=== PATIENT | male | born 1960 | race Two or more races ===

== ENCOUNTER 2016-05-24 21:59 | Inpatient (IN) | payer MEDICARE, MEDICAID ==
[~2016-05-24] VITALS: Ht 193 cm; Wt 81.6 kg
[2016-05-24 22:47] VITALS: BP 151/98
[2016-05-24 22:53] LABS: BASOPHILS % (AUTO) 1.8 % (0.0-2.0); EOSINOPHILS % (AUTO) 5.7 % (0.0-3.0); LYMPHOCYTES % (AUTO) 30.8 % (20.0-45.0); MEAN CORPUSCULAR HEMOGLOBIN 31.7 PG (27.0-31.0); MEAN CORPUSCULAR HGB CONC 33.1 G/DL (32.0-36.0); MEAN CORPUSCULAR VOLUME 96 FL (80-99); MEAN PLATELET VOLUME 5.8 FL (6.5-10.1); MONOCYTES % (AUTO) 15.3 % (1.0-10.0); NEUTROPHILS % (AUTO) 46.4 % (45.0-75.0); PLATELET COUNT 210 K/UL (150-450); RED BLOOD COUNT 3.25 M/UL (4.70-6.10); RED CELL DISTRIBUTION WIDTH 13.7 % (11.6-14.8); WHITE BLOOD COUNT 5.6 K/UL (4.8-10.8)
[2016-05-24 23:09] LABS: TROPONIN I < 0.30 ng/mL (<=0.30)
[2016-05-24 23:10] LABS: ALANINE AMINOTRANSFERASE 16 U/L (3-41); ANION GAP 15 (5-15); ASPARTATE AMINO TRANSFERASE 13 U/L (5-40); CALCIUM 8.8 mg/dL (8.6-10.2); CARBON DIOXIDE 23 mEQ/L (20-30); CHLORIDE 95 mEQ/L (98-107); GLOMERULAR FILTRATION RATE > 60 mL/min (>60); HEMOLYSIS 3; POTASSIUM 3.8 mEQ/L (3.4-4.9); SODIUM 133 mEQ/L (135-145)
[2016-05-24 23:21] LABS: CKMB 1.6 ng/mL (< 6.7)
[2016-05-24 23:30] VITALS: BP 134/99
[2016-05-25] VITALS (8 sets, daily range): BP systolic 108–128; BP diastolic 64–100
[2016-05-25] MEDS ORDERED: VANCOMYCIN1 GM/2502 IVPB (01:59)
[2016-05-25] MEDS ORDERED: FINASTERIDE5 MG ORAL (01:59)
[2016-05-25] MEDS ORDERED: CHLORHEXIDINE FL1 M1 MC (01:59)
[2016-05-25] MEDS ORDERED: FLOMAX0.4 MG ORAL (01:59)
[2016-05-25] MEDS ORDERED: VANCOCIN250 MG ORAL (01:59)
[2016-05-25] MEDS ORDERED: COLACE100 MG ORAL (01:59)
[2016-05-25] MEDS ORDERED: MULTIVITAMINS1 EAC8 ORAL (01:59)
[2016-05-25] MEDS ORDERED: LORATADINE10 M1 PO (01:59)
[2016-05-25] MEDS ORDERED: FERROUS SULFAT325 MG ORAL (01:59)
--- NOTE | 2016-05-25 03:15 | Emergency Room Report ---
History of Present Illness General Chief Complaint: Skin Rash/Abscess Source: Patient Present Illness HPI Patient present with complaints of swelling and redness to both of his legs Questionable low-grade fever Patient resides at a nursing facility At this time denies any chest pressures of breath Pain to both legs is 6/10 This has been a fairly chronic pain Denies any fall or trauma Denies any back or flank pain Allergies: Coded Allergies: No Known Allergies (Unverified , 05/24/16) Patient History Past Medical History: see triage record Pertinent Family History: none Reviewed Nursing Documentation: PMH: Agreed, PSxH: Agreed Review of Systems All Other Systems: negative except mentioned in HPI Physical Exam Vital Signs Date Time Temp Pulse Resp B/P Pulse Ox O2 Delivery O2 Flow Rate FiO2 05/24/16 21:55 98.1 111 18 144/88 100 Room Air Sp02 EP Interpretation: reviewed, normal General Appearance: well appearing, no apparent distress Head: normocephalic, atraumatic Eyes: bilateral eye EOMI, bilateral eye PERRL ENT: hearing grossly normal, normal pharynx, TMs + canals normal, uvula midline Neck: full range of motion, supple, no meningismus, no bony tend Respiratory: lungs clear, normal breath sounds, no rhonchi, no respiratory distress, no retraction, no accessory muscle use Cardiovascular #1: normal peripheral pulses, regular rate, rhythm, no gallop, no JVD, no murmur Gastrointestinal: normal bowel sounds, non tender, soft, no mass, no organomegaly, non-distended, no guarding, no hernia, no pulsatile mass, no rebound Genitourinary: no CVA tenderness Musculoskeletal: swelling - 2 bilateral lower extremity, there is a significant chronic component to this patient appears to have venous insufficiency and stasis, pupils are intact in the foot does feel warm Neurologic: oriented x3, responsive, fire assistant III-XII nml as tested, sensory intact Psychiatric: mood/affect normal Skin: warm/dry, palpation normal, other - As noted above Lymphatic: normal inspection, no adenopathy Medical Decision Making Diagnostic Impression: Primary Impression: Cellulitis Additional Impressions: Venous stasis Venous stasis dermatitis of both lower extremities ER Course Given the patient's presentation and history Blood work was initiated Patient was given diuretics along with antibiotics Patient requires further infectious disease evaluation And further inpatient care Labs Test 05/24/16 22:10 White Blood Count 5.6 K/UL (4.8-10.8) Red Blood Count 3.25 M/UL (4.70-6.10) Hemoglobin 10.3 G/DL (14.2-18.0) Hematocrit 31.1 % (42.0-52.0) Mean Corpuscular Volume 96 FL (80-99) Mean Corpuscular Hemoglobin 31.7 PG (27.0-31.0) Mean Corpuscular Hemoglobin Concent 33.1 G/DL (32.0-36.0) Red Cell Distribution Width 13.7 % (11.6-14.8) Platelet Count 210 K/UL (150-450) Mean Platelet Volume 5.8 FL (6.5-10.1) Neutrophils (%) (Auto) 46.4 % (45.0-75.0) Lymphocytes (%) (Auto) 30.8 % (20.0-45.0) Monocytes (%) (Auto) 15.3 % (1.0-10.0) Eosinophils (%) (Auto) 5.7 % (0.0-3.0) Basophils (%) (Auto) 1.8 % (0.0-2.0) Sodium Level 133 mEQ/L (135-145) Potassium Level 3.8 mEQ/L (3.4-4.9) Chloride Level 95 mEQ/L (98-107) Carbon Dioxide Level 23 mEQ/L (20-30) Anion Gap 15 (5-15) Blood Urea Nitrogen 15 mg/dL (7-23) Creatinine 1.0 mg/dL (0.7-1.2) Estimat Glomerular Filtration Rate > 60 mL/min (>60) Glucose Level 87 mg/dL (74-106) Lactic Acid Level 1.40 mmol/L (0.66-2.22) Calcium Level 8.8 mg/dL (8.6-10.2) Total Bilirubin 0.3 mg/dL (0.0-1.2) Aspartate Amino Transf (AST/SGOT) 13 U/L (5-40) Alanine Aminotransferase (ALT/SGPT) 16 U/L (3-41) Alkaline Phosphatase 51 U/L (40-129) Total Creatine Kinase 47 U/L (38-174) Creatine Kinase MB 1.6 ng/mL (< 6.7) Creatine Kinase MB Relative Index 3.4 Troponin I < 0.30 ng/mL (<=0.30) Pro-B-Type Natriuretic Peptide 216 pg/mL (0-125) Total Protein 7.0 g/dL (6.6-8.7) Albumin 3.5 g/dL (3.5-5.2) Globulin 3.5 g/dL Albumin/Globulin Ratio 1.0 (1.0-2.7) Rhythm Strip Diag. Results EP Interpretation: yes Rate: 67 Rhythm: NSR, no PVC's, no ectopy Chest X-Ray Diagnostic Results EP Interpretation: Yes Findings: no consolidation, no effusion, no pneumothorax Number of Views: 1 Last Vital Signs Date Time Temp Pulse Resp B/P Pulse Ox O2 Delivery O2 Flow Rate FiO2 05/25/16 02:01 98.6 106 26 116/74 95 Room Air Disposition: ADMITTED INPATIENT Condition: Serious Referrals: KALEB ELIZONDO (PCP) SIDNEY WASHBURN D.O. May 25, 2016 03:15
[2016-05-25] MEDS ORDERED: Miralax 17gm pkt ORAL PRN (04:00)
[2016-05-25] MEDS ORDERED: Mylanta II UD 30ml ORAL PRN (04:00)
[2016-05-25] MEDS ORDERED: LORazepam Inj 2mg/ml 1ml IV PRN (04:00)
[2016-05-25] MEDS ORDERED: Zolpidem 5mg tab ORAL PRN (04:00)
[2016-05-25] MEDS ORDERED: Vancomycin 1gm inj IVPB ONE (05:09)
[2016-05-25] MEDS ORDERED: Cefepime 1gm vial ONE (05:09)
[2016-05-25] MEDS ORDERED: Vancomycin 1250mg/D5W 250ml IVPB SCH ×2 (06:00)
[2016-05-25] MEDS: Tamsulosin 0.4mg cap ORAL SCH (09:18)
[2016-05-25] MEDS: Heparin 5000 units/ml inj SUBQ SCH ×2 (09:19→21:54)
[2016-05-25] MEDS: Morphine Sulfate 2mg/ml Inj IVP PRN ×3 (09:21→19:47)
[2016-05-25] MEDS: Vancomycin 1250mg/D5W 250ml IVPB SCH ×4 (10:04→22:49)
--- NOTE | 2016-05-25 11:35 | Diagnostic Imaging Report ---
Indication: Chest Pain Comparison: None A single view chest radiograph was obtained. Findings: Cardiomediastinal appearance is within normal limits for age. Pulmonary vascularity is appropriate. The diaphragmatic contour is smooth and costophrenic angles are sharp. No pleural effusions are identified. There is a PICC line present in good position. The bones are unremarkable. Impression: No acute findings
--- NOTE | 2016-05-25 12:28 | Infectious Diseases Prog Note ---
Assessment/Plan Problems: (1) Cellulitis of leg Assessment & Plan: continue vanco and cefepime . check Sed rate and CRP (2) Venous stasis Assessment & Plan: recommend venous doplar to rule out dvt. keep leg elevated in bed (3) Edema of both legs Assessment & Plan: recommend diuresis, and doppler to rule out DVT Subjective Allergies: Coded Allergies: No Known Allergies (Unverified , 05/24/16) Objective Vital Signs Last 24 Hour Vital Signs Date Time Temp Pulse Resp B/P Pulse Ox O2 Delivery O2 Flow Rate FiO2 05/25/16 08:00 97.9 99 18 109/66 97 Room Air 05/25/16 03:22 97.9 103 20 108/64 97 Room Air 05/25/16 02:01 98.6 106 26 116/74 95 Room Air 05/25/16 02:00 104 24 109/71 98 Room Air 05/25/16 01:00 106 26 116/74 95 Room Air 05/25/16 00:00 110 23 128/100 98 Room Air 05/24/16 23:30 107 21 134/99 99 Room Air 05/24/16 22:47 98.6 106 18 151/98 100 Room Air 05/24/16 21:55 98.1 111 18 144/88 100 Room Air Height (Feet): 6 Height (Inches): 4.00 Weight (Pounds): 180 Laboratory Tests Test 05/24/16 22:10 White Blood Count 5.6 K/UL (4.8-10.8) Red Blood Count 3.25 M/UL (4.70-6.10) L Hemoglobin 10.3 G/DL (14.2-18.0) L Hematocrit 31.1 % (42.0-52.0) L Mean Corpuscular Volume 96 FL (80-99) Mean Corpuscular Hemoglobin 31.7 PG (27.0-31.0) H Mean Corpuscular Hemoglobin Concent 33.1 G/DL (32.0-36.0) Red Cell Distribution Width 13.7 % (11.6-14.8) Platelet Count 210 K/UL (150-450) Mean Platelet Volume 5.8 FL (6.5-10.1) L Neutrophils (%) (Auto) 46.4 % (45.0-75.0) Lymphocytes (%) (Auto) 30.8 % (20.0-45.0) Monocytes (%) (Auto) 15.3 % (1.0-10.0) H Eosinophils (%) (Auto) 5.7 % (0.0-3.0) H Basophils (%) (Auto) 1.8 % (0.0-2.0) Sodium Level 133 mEQ/L (135-145) L Potassium Level 3.8 mEQ/L (3.4-4.9) Chloride Level 95 mEQ/L (98-107) L Carbon Dioxide Level 23 mEQ/L (20-30) Anion Gap 15 (5-15) Blood Urea Nitrogen 15 mg/dL (7-23) Creatinine 1.0 mg/dL (0.7-1.2) Estimat Glomerular Filtration Rate > 60 mL/min (>60) Glucose Level 87 mg/dL (74-106) Lactic Acid Level 1.40 mmol/L (0.66-2.22) Calcium Level 8.8 mg/dL (8.6-10.2) Total Bilirubin 0.3 mg/dL (0.0-1.2) Aspartate Amino Transf (AST/SGOT) 13 U/L (5-40) Alanine Aminotransferase (ALT/SGPT) 16 U/L (3-41) Alkaline Phosphatase 51 U/L (40-129) Total Creatine Kinase 47 U/L (38-174) Creatine Kinase MB 1.6 ng/mL (< 6.7) Creatine Kinase MB Relative Index 3.4 Troponin I < 0.30 ng/mL (<=0.30) Pro-B-Type Natriuretic Peptide 216 pg/mL (0-125) H Total Protein 7.0 g/dL (6.6-8.7) Albumin 3.5 g/dL (3.5-5.2) Globulin 3.5 g/dL Albumin/Globulin Ratio 1.0 (1.0-2.7) Current Medications Medications (Trade) Dose Ordered Sig/Janay Route PRN Reason Start Time Stop Time Status Last Admin Dose Admin Acetaminophen (Tylenol) 650 mg Q4H PRN ORAL fever 05/25/16 04:00 06/24/16 03:59 Al Hydroxide/Mg Hydroxide (Mylanta II) 30 ml Q6H PRN ORAL dyspepsia 05/25/16 04:00 06/24/16 03:59 Cefepime HCl 1 gm/ Dextrose 50 ml @ 50 mls/hr Q8H IVPB 05/25/16 05:00 06/01/16 04:59 05/25/16 05:23 Dextrose (Dextrose 50%) STAT PRN IV Hypoglycemia 05/25/16 04:00 06/24/16 03:59 Finasteride (Proscar) 5 mg DAILY ORAL 05/25/16 09:00 06/24/16 08:59 05/25/16 09:18 Heparin Sodium (Porcine) (Heparin 5000 units/ml) 5,000 units EVERY 12 HOURS SUBQ 05/25/16 09:00 06/24/16 08:59 05/25/16 09:19 Lorazepam (Ativan 2mg/ml 1ml) 0.5 mg Q4H PRN IV For Anxiety 05/25/16 04:00 06/01/16 03:59 Morphine Sulfate (Morphine Sulfate) 1 mg Q4H PRN IVP For Pain 05/25/16 04:00 06/01/16 03:59 05/25/16 09:21 Ondansetron HCl (Zofran) 4 mg Q6H PRN IVP Nausea & Vomiting 05/25/16 04:00 06/24/16 03:59 Polyethylene Glycol (Miralax) 17 gm HSPRN PRN ORAL Constipation 05/25/16 04:00 06/24/16 03:59 Tamsulosin HCl (Flomax) 0.4 mg DAILY ORAL 05/25/16 09:00 06/24/16 08:59 05/25/16 09:18 Vancomycin HCl 1 ea 1 ea DAILY PRN MISC Per rx protocol 05/25/16 04:00 06/24/16 03:59 Vancomycin HCl/ Dextrose (Vancomycin/D5W 250ml) 250 ml @ 166.667 mls/hr Q12H IVPB 05/25/16 10:00 05/30/16 09:59 05/25/16 10:04 Zolpidem Tartrate (Ambien) 5 mg HSPRN PRN ORAL Insomnia 05/25/16 04:00 06/24/16 03:59 Kathryn Cheung M.D. May 25, 2016 12:28
[2016-05-25] MEDS ORDERED: ZYPREXA15 MG ORAL (14:58)
[2016-05-25] MEDS ORDERED: BENZTROPINE ME0.5 MG PO (14:58)
[2016-05-25] MEDS ORDERED: DEPAKOTE500 MG PO ×2 (14:58)
[2016-05-25] MEDS ORDERED: REMERON15 M1 ORAL (14:58)
[2016-05-25] MEDS ORDERED: FLUPHENAZINE HCL5 MG ORAL (15:02)
--- NOTE | 2016-05-25 17:18 | Consultation ---
History of Present Illness General Date patient seen: May 25, 2016 Chief Complaint: Skin Rash/Abscess Referring physician: Dr Dias Reason for Consultation: In patient management Present Illness HPI 55 year old male with hx of psychiatric disorder, [facility] resident admitted through ER with CC of swelling of ankles, and rash around her calf. Pt doens't have any fever, chills or any other complains, doesn't know about any past heart disease. Allergies: Coded Allergies: No Known Allergies (Unverified , 05/24/16) Medication History Scheduled Benztropine Mesylate (Benztropine Mesylate), 1 MG PO BID, (Reported) Chlorhexidine (Chlorhexidine Flavor), 20 ML MC TID, (Reported) Divalproex Sodium (Depakote), 500 MG PO Q AM, (Reported) Divalproex Sodium (Depakote), 1,000 MG PO Q PM, (Reported) Docusate Sodium* (Colace*), 100 MG ORAL TWICE A DAY, (Reported) Ferrous Sulfate* (Ferrous Sulfate*), 325 MG ORAL TWICE A DAY, (Reported) Finasteride (Finasteride), 5 MG ORAL DAILY, (Reported) Fluphenazine Hcl* (Prolixin*), 10 MG ORAL TWICE A DAY, (Reported) Loratadine (Loratadine), 10 MG PO DAILY, (Reported) Mirtazapine (Remeron), 15 MG ORAL BEDTIME, (Reported) Multivitamin With Minerals (Multivitamins With Minerals*), 1 TAB ORAL DAILY, ( Reported) Olanzapine (Zyprexa), 10 MG ORAL QHS, (Reported) Tamsulosin HCl (Flomax), 0.4 MG ORAL DAILY, (Reported) Vancomycin HCl (Vancocin HCl), 250 MG ORAL QID, (Reported) Vancomycin Hcl/D5w (Vancomycin-D5w 1 G/250 Ml), 750 MG IVPB Q24H, (Reported) Patient History Healthcare decision maker Resuscitation status Advanced Directive on File Past Medical/Surgical History Past Medical/Surgical History: (1) Psychosis Review of Systems All Other Systems: negative except mentioned in HPI Physical Exam General Appearance: WD/WN Lines, tubes and drains: peripheral, central line HEENT: normocephalic, atraumatic Neck: non-tender, normal alignment Respiratory/Chest: chest wall non-tender, lungs clear Cardiovascular/Chest: normal peripheral pulses, normal rate Abdomen: normal bowel sounds, non tender Genitourinary/Rectal: normal genital exam, normal rectal exam Last 24 Hour Vital Signs Date Time Temp Pulse Resp B/P Pulse Ox O2 Delivery O2 Flow Rate FiO2 05/25/16 15:46 97.7 88 20 118/66 99 Room Air 05/25/16 12:00 98.1 94 20 113/69 100 Room Air 05/25/16 08:00 97.9 99 18 109/66 97 Room Air 05/25/16 03:22 97.9 103 20 108/64 97 Room Air 05/25/16 02:01 98.6 106 26 116/74 95 Room Air 05/25/16 02:00 104 24 109/71 98 Room Air 05/25/16 01:00 106 26 116/74 95 Room Air 05/25/16 00:00 110 23 128/100 98 Room Air 05/24/16 23:30 107 21 134/99 99 Room Air 05/24/16 22:47 98.6 106 18 151/98 100 Room Air 05/24/16 21:55 98.1 111 18 144/88 100 Room Air Intake and Output 05/24/16 05/25/16 19:00 07:00 Intake Total 300 ml Output Total 300 ml Balance 0 ml Intake Oral 250 ml IV Total 50 ml Output Urine Total 300 ml # Voids 1 Laboratory Tests Test 05/24/16 22:10 05/25/16 14:30 White Blood Count 5.6 K/UL (4.8-10.8) Red Blood Count 3.25 M/UL (4.70-6.10) L Hemoglobin 10.3 G/DL (14.2-18.0) L Hematocrit 31.1 % (42.0-52.0) L Mean Corpuscular Volume 96 FL (80-99) Mean Corpuscular Hemoglobin 31.7 PG (27.0-31.0) H Mean Corpuscular Hemoglobin Concent 33.1 G/DL (32.0-36.0) Red Cell Distribution Width 13.7 % (11.6-14.8) Platelet Count 210 K/UL (150-450) Mean Platelet Volume 5.8 FL (6.5-10.1) L Neutrophils (%) (Auto) 46.4 % (45.0-75.0) Lymphocytes (%) (Auto) 30.8 % (20.0-45.0) Monocytes (%) (Auto) 15.3 % (1.0-10.0) H Eosinophils (%) (Auto) 5.7 % (0.0-3.0) H Basophils (%) (Auto) 1.8 % (0.0-2.0) Sodium Level 133 mEQ/L (135-145) L Potassium Level 3.8 mEQ/L (3.4-4.9) Chloride Level 95 mEQ/L (98-107) L Carbon Dioxide Level 23 mEQ/L (20-30) Anion Gap 15 (5-15) Blood Urea Nitrogen 15 mg/dL (7-23) Creatinine 1.0 mg/dL (0.7-1.2) Estimat Glomerular Filtration Rate > 60 mL/min (>60) Glucose Level 87 mg/dL (74-106) Lactic Acid Level 1.40 mmol/L (0.66-2.22) Calcium Level 8.8 mg/dL (8.6-10.2) Total Bilirubin 0.3 mg/dL (0.0-1.2) Aspartate Amino Transf (AST/SGOT) 13 U/L (5-40) Alanine Aminotransferase (ALT/SGPT) 16 U/L (3-41) Alkaline Phosphatase 51 U/L (40-129) Total Creatine Kinase 47 U/L (38-174) Creatine Kinase MB 1.6 ng/mL (< 6.7) Creatine Kinase MB Relative Index 3.4 Troponin I < 0.30 ng/mL (<=0.30) Pro-B-Type Natriuretic Peptide 216 pg/mL (0-125) H Total Protein 7.0 g/dL (6.6-8.7) Albumin 3.5 g/dL (3.5-5.2) Globulin 3.5 g/dL Albumin/Globulin Ratio 1.0 (1.0-2.7) Erythrocyte Sedimentation Rate 61 MM/HR (0-20) H C-Reactive Protein, Quantitative 1.3 mg/dL (< 0.5) H Height (Feet): 6 Height (Inches): 4.00 Weight (Pounds): 180 Medications Current Medications Medications (Trade) Dose Ordered Sig/Janay Route PRN Reason Start Time Stop Time Status Last Admin Dose Admin Acetaminophen (Tylenol) 650 mg Q4H PRN ORAL fever 05/25/16 04:00 06/24/16 03:59 05/25/16 15:38 Al Hydroxide/Mg Hydroxide (Mylanta II) 30 ml Q6H PRN ORAL dyspepsia 05/25/16 04:00 06/24/16 03:59 Benztropine Mesylate (Cogentin) 1 mg BID ORAL 05/25/16 18:00 06/24/16 17:59 Cefepime HCl 1 gm/ Dextrose 50 ml @ 50 mls/hr Q8H IVPB 05/25/16 05:00 06/01/16 04:59 05/25/16 13:38 Dextrose (Dextrose 50%) STAT PRN IV Hypoglycemia 05/25/16 04:00 06/24/16 03:59 Divalproex Sodium (Depakote) 500 mg DAILY ORAL 05/26/16 09:00 06/25/16 08:59 Divalproex Sodium (Depakote) 1,000 mg BEDTIME ORAL 05/25/16 21:00 06/24/16 20:59 Finasteride (Proscar) 5 mg DAILY ORAL 05/25/16 09:00 06/24/16 08:59 05/25/16 09:18 Fluphenazine HCl (Prolixin) 10 mg BID ONCE ORAL 05/25/16 18:00 05/25/16 18:01 Heparin Sodium (Porcine) (Heparin 5000 units/ml) 5,000 units EVERY 12 HOURS SUBQ 05/25/16 09:00 06/24/16 08:59 05/25/16 09:19 Lorazepam (Ativan 2mg/ml 1ml) 0.5 mg Q4H PRN IV For Anxiety 05/25/16 04:00 06/01/16 03:59 Mirtazapine (Remeron) 15 mg BEDTIME ORAL 05/25/16 21:00 06/24/16 20:59 Morphine Sulfate (Morphine Sulfate) 1 mg Q4H PRN IVP For Pain 05/25/16 04:00 06/01/16 03:59 05/25/16 13:39 Olanzapine (ZyPREXA) 10 mg BEDTIME ORAL 05/25/16 21:00 06/24/16 20:59 Ondansetron HCl (Zofran) 4 mg Q6H PRN IVP Nausea & Vomiting 05/25/16 04:00 06/24/16 03:59 Polyethylene Glycol (Miralax) 17 gm HSPRN PRN ORAL Constipation 05/25/16 04:00 06/24/16 03:59 Tamsulosin HCl (Flomax) 0.4 mg DAILY ORAL 05/25/16 09:00 06/24/16 08:59 05/25/16 09:18 Vancomycin HCl 1 ea 1 ea DAILY PRN MISC Per rx protocol 05/25/16 04:00 06/24/16 03:59 Vancomycin HCl/ Dextrose (Vancomycin/D5W 250ml) 250 ml @ 166.667 mls/hr Q12H IVPB 05/25/16 10:00 05/30/16 09:59 05/25/16 10:04 Zolpidem Tartrate (Ambien) 5 mg HSPRN PRN ORAL Insomnia 05/25/16 04:00 06/24/16 03:59 Assessment/Plan Problem List: (1) Cellulitis ICD Codes: L03.90 - Cellulitis, unspecified SNOMED: 414516162 (2) Edema of both legs ICD Codes: R60.0 - Localized edema SNOMED: 870743195 (3) Venous stasis dermatitis of both lower extremities ICD Codes: I83.11 - Varicose veins of right lower extremity with inflammation; I83.12 - Varicose veins of left lower extremity with inflammation SNOMED: 53145203 (4) Psychosis ICD Codes: F29 - Unspecified psychosis not due to a substance or known physiological condition SNOMED: 14251048 Assessment/Plan IV antibiotics doppler of legs cardiac evaluation psych evaluation FRANKO GUSMAN May 25, 2016 17:18
[2016-05-25] MEDS: Benztropine 1mg tab ORAL SCH (17:52)
--- NOTE | 2016-05-25 19:28 | General Progress Note ---
Progress Note Progress Note [id number] pt seen and examined full note dictated DERRICK LOBO May 25, 2016 19:28
[2016-05-25] MEDS: Depakote 500mg tab ORAL SCH (21:52)
--- NOTE | 2016-05-25 22:08 | History and Physical Report ---
DATE OF ADMISSION: 05/24/2016 TIME SEEN: At 3 p.m. ATTENDING PHYSICIAN: Santhosh Dias D.O. CONSULTANTS: 1. Samir Miranda M.D. 2. Kathryn Cheung M.D. 3. Sachin Castillo M.D. 4. Rosa Maria Bernal M.D. CHIEF COMPLAINT: Bilateral lower extremity cellulitis with edema, pneumonia, sepsis, and encephalopathy. HISTORY OF PRESENT ILLNESS: This is a 55-year-old male from [facility], presents to [place] ER with increased bilateral lower extremity edema and cellulitis, diagnosed of above, and pneumonia, sepsis, and encephalopathy and being admitted to medical floor for further treatment. Currently, calm, sleeping in bed, and refusing to answer questions. REVIEW OF SYSTEMS: Not available. PAST MEDICAL HISTORY: Includes encephalopathy and edema. PAST SURGICAL HISTORY: Unknown. ALLERGIES: Denies. MEDICATIONS: Include vancomycin, finasteride, Flomax, heparin, cefepime, Tylenol, morphine, and MiraLax. SOCIAL HISTORY: The patient refused to answer. PHYSICAL EXAMINATION: VITAL SIGNS: Temperature 98, pulse 94, respirations 20, and blood pressure 113/69. CARDIOVASCULAR: No murmur. LUNGS: Poor air exchange. ABDOMEN: Bowel sounds are positive. Nontender and nondistended. EXTREMITIES: No cyanosis or clubbing. A 1+ edema, bilateral lower extremities below mid peters slightly . LABORATORY DATA: Labs at this time show hemoglobin 10.3, otherwise CBC is normal. Sodium 133, chloride 95. BNP is 216. ASSESSMENT: 1. Bilateral lower extremity cellulitis, edema. 2. Anemia. 3. Pneumonia. 4. Sepsis. 5. Encephalopathy. PLAN: Continue premedications. O2 pulmonary treatment. Antibiotics per Infectious Disease. Wound care. Blood pressure control. OT/PT and dietary evaluation. CBC and BMP in the morning. We will continue to follow the patient. Santhosh Dias D.O. DR: CM JOB#: [id number] CC:
[2016-05-26] VITALS (7 sets, daily range): BP systolic 100–140; BP diastolic 59–86
--- NOTE | 2016-05-26 00:07 | Consultation ---
DATE OF CONSULTATION: INFECTIOUS DISEASE CONSULTATION CONSULTING PHYSICIAN: Kathryn Cheung M.D. REQUESTING PHYSICIAN: Santhosh Dias D.O. REASON FOR CONSULTATION: Bilateral lower extremity cellulitis, for antibiotics treatment. HISTORY OF PRESENT ILLNESS: The patient is a 55-year-old male with no significant past medical history, who presented to the emergency room with a chief complaint of leg swelling and redness with low-grade fever. The patient lives at the [facility] facility. He was noticed by the nursing staff to have more swelling and redness on both legs and feet. No recent trauma or fall. No skin abscess or drainage. It is unclear whether he had a venous stasis as a predisposing factor or not. So, he was brought in to the emergency room for further evaluation and management. Temperature was 98.1 degrees and O2 saturation 100% on room air. Physical exam showed swelling on both legs with chronic changes due to venous insufficiency and stasis, so I was asked by the primary provider for antibiotics recommendation and further management. PAST MEDICAL HISTORY: Negative. PAST SURGICAL HISTORY: Negative. MEDICATIONS: He is on Depakote, Zyprexa, Remeron, Cogentin, Prolixin, Proscar, vancomycin, cefepime, morphine, Tylenol, MiraLAX, Zofran, Ativan, Ambien, and Mylanta. ALLERGIES: He has no known drug allergy. SOCIAL HISTORY: He is a [facility] resident. Denied using any tobacco, drugs, or alcohol. FAMILY HISTORY: Noncontributory. REVIEW OF SYSTEMS: A 14-point of system reviewed were all negative apart from the one I mentioned above in my History and Physical PHYSICAL EXAMINATION: VITAL SIGNS: Temperature 97.7 degrees, pulse 88, respirations 20, blood pressure 118/66, and pulse oximetry 99% on room air. GENERAL: A middle-aged male, lying in bed, alert, and not in distress. HEENT: Normocephalic and atraumatic. Pupils are reactive to light equally. Moist oral mucosa. NECK: Supple. No JVD. CARDIOVASCULAR: Regular rate and rhythm. No murmur. No gallop. LUNGS: Clear bilaterally. No wheezing or rhonchi. Normal breathing efforts. ABDOMEN: Soft, nontender, and nondistended. Positive bowel sounds. No hepatosplenomegaly. EXTREMITIES: He had edema +2 in both lower extremity with chronic component due to venous insufficiency and stasis dermatitis. SKIN: Warm and dry mainly on both lower extremities. No rash. No hives. LABORATORY DATA: Labs showed white count of 5.6, hemoglobin of 10.3, hematocrit of 31.3, and platelet count 210,000. BUN of 15 and creatinine of 1. AST of 13 and ALT of 16. IMAGING DATA: Chest x-ray showed no acute findings. Arterial study showed no evidence of stenosis or occlusion in both right and left lower extremity. ASSESSMENT AND PLAN: 1. Cellulitis of the legs. We will continue vancomycin and cefepime empiric treatment for now. Check his sedimentation rate and C-reactive protein. I recommend venous Doppler of both legs to rule out deep venous thrombosis. 2. Venous stasis with chronic stasis dermatitis. Recommend venous Doppler to rule out deep venous thrombosis. Arterial study looked okay. keep legs elevated all the time while in bed. 3. Edema of both legs. Recommend echocardiogram to rule out congestive heart failure and venous Doppler to rule out deep venous thrombosis. Kathryn Cheung M.D. DR: JEFF JOB#: [id number] CC: [place]
[2016-05-26] MEDS: Morphine Sulfate 2mg/ml Inj IVP PRN ×5 (00:17→22:58)
--- NOTE | 2016-05-26 06:27 | Consultation ---
DATE OF CONSULTATION: 05/25/2016 NEPHROLOGY CONSULTATION CONSULTING PHYSICIAN: Rosa Maria Bernal M.D. REFERRING PHYSICIAN: Santhosh Dias D.O. REASON FOR CONSULTATION: Fluid overload and electrolyte imbalance. HISTORY OF PRESENT ILLNESS: The patient is a 55-year-old unfortunate male with past medical history significant for history of schizophrenia. He is a assisted resident. He presents to emergency room at [facility] for bilateral lower extremity swelling and cellulitis. The rash was more on his right rather than left. He consequently was found to be overloaded and having low sodium. I was called for management of renal disease and electrolyte imbalance. PAST MEDICAL HISTORY: Including history of schizophrenia, otherwise negative. HOME MEDICATIONS: 1. Benztropine 1 mg p.o. b.i.d. 2. Chlorhexidine 20 mg p.o. daily. 3. Divalproex or Depakote 500 mg p.o. daily. 4. Depakote 1000 mg at night. 5. Colace 100 mg p.o. daily. 6. Iron sulfate 325 mg p.o. daily. 7. Finasteride 5 mg p.o. daily. 8. Loratadine 10 mg p.o. daily. 9. Zyprexa 10 mg p.o. daily. SOCIAL HISTORY: He is a nonsmoker. There is no history of current alcohol or drug use. retirement resident. FAMILY HISTORY: Noncontributory. REVIEW OF SYSTEMS: General: He denied any weight loss, weight gain, fever, chills, or night sweats. Head and neck: Denied any dysphagia, odynophagia, blurry vision, headache, or neck stiffness. Pulmonary: No shortness of breath. No cough or sputum. Cardiovascular: Denied any orthopnea, has lower extremity swelling. Gastrointestinal: Denied any nausea, vomiting, diarrhea, hematemesis, or hematochezia. Genitourinary: Denied any dysuria, frequency, or hematuria. Musculoskeletal: He complained of bilateral lower extremity edema and cellulitis. PHYSICAL EXAMINATION: VITAL SIGNS: The patient has temperature of 97 degrees, pulse of 88, respiratory rate of 20, temperature of 97 degrees, and blood pressure of 118/86. HEENT: Extraocular movement intact. Pupils are reactive to light and accommodation. NECK: No JVP. No LAD. No thyromegaly. LUNGS: Clear to auscultation. CARDIAC: Regular rate and rhythm. S1 and S2. No murmur. No rub. ABDOMEN: Soft, nontender, and nondistended. EXTREMITIES: Bilateral 2+ edema of lower extremity. He also has a rash with redness and increased warmth on both lower extremities, right worse than left, otherwise negative. LABORATORY AND DIAGNOSTIC DATA: The most recent laboratory result revealed WBC count of 5.6, hemoglobin of 10.3, hematocrit of 31, and platelet count of 210,000. Chemistry reveals sodium 133, potassium 3.8, 95 chloride, 23 bicarb, BUN of 15, creatinine of 1, glucose of 87, and calcium of 8.8. AST of 13, ALT of 16, and alkaline phosphatase of 61. Total protein of 7, albumin of 3.5. There is no UA. The patient had a chest x-ray on admission, which revealed unremarkable. No acute cardiopulmonary disease. ASSESSMENT: 1. Bilateral lower extremity edema and swelling. The etiology is unlikely to be cardiac in origin since patient has no evidence of pulmonary overload. He is lying flat in the bed and the chest x-ray is negative. The other possibility is nephrotic syndrome, although his is in acceptable level. 2. Mild hyponatremia. 3. Anemia. PLAN: Plan for the patient is to obtain a UA. Check the random urine [id number] ratio to calculate the proteinuria. Check the urine for eosinophil. I would monitor renal function and electrolyte closely and daily weights. Check the Is and Os. I would like to thank, Dr. Santhosh Dias, for allowing me to participate in the care of this patient. Rosa Maria Bernal M.D. DR: HAMZAH JOB#: [id number] CC:
[2016-05-26 07:36] LABS: ALANINE AMINOTRANSFERASE 15 U/L (3-41); ALBUMIN/GLOBULIN RATIO 1.1 (1.0-2.7); ANION GAP 16 (5-15); ASPARTATE AMINO TRANSFERASE 13 U/L (5-40); CALCIUM 8.7 mg/dL (8.6-10.2); CARBON DIOXIDE 22 mEQ/L (20-30); CHLORIDE 102 mEQ/L (98-107); CHOLESTEROL 109 mg/dL (< 200); CHOLESTEROL/HDL RATIO 3.9 (3.3-4.4); GLOMERULAR FILTRATION RATE > 60 mL/min (>60); HEMOLYSIS 4; LDL CHOLESTEROL (CALC.) 70 mg/dL (60-99); POTASSIUM 3.9 mEQ/L (3.4-4.9); SODIUM 140 mEQ/L (135-145); TOTAL PROTEIN 6.1 g/dL (6.6-8.7)
[2016-05-26 07:37] LABS: BASOPHILS % (AUTO) 0.7 % (0.0-2.0); EOSINOPHILS % (AUTO) 8.6 % (0.0-3.0); LYMPHOCYTES % (AUTO) 37.7 % (20.0-45.0); MEAN CORPUSCULAR HEMOGLOBIN 32.5 PG (27.0-31.0); MEAN CORPUSCULAR HGB CONC 35.1 G/DL (32.0-36.0); MEAN CORPUSCULAR VOLUME 93 FL (80-99); MEAN PLATELET VOLUME 6.3 FL (6.5-10.1); MONOCYTES % (AUTO) 12.1 % (1.0-10.0); NEUTROPHILS % (AUTO) 40.9 % (45.0-75.0); PLATELET COUNT 205 K/UL (150-450); RED BLOOD COUNT 3.31 M/UL (4.70-6.10); RED CELL DISTRIBUTION WIDTH 13.1 % (11.6-14.8); WHITE BLOOD COUNT 4.5 K/UL (4.8-10.8)
[2016-05-26 08:16] LABS: HEMOGLOBIN A1C 4.4 % (< 6.0)
--- NOTE | 2016-05-26 09:03 | Nephrology Progress Note ---
Assessment/Plan Assessment 1.bilateral lower ext cellulitis 2.venous stasis 3.Htn 4.hyponatremia Plan plan to continue iv antibiotic diuresis monitoring electrolyte avoid NSAID Subjective Constitutional: Reports: no symptoms HEENT: Reports: no symptoms Genitourinary: Reports: no symptoms Neurologic/Psychiatric: Reports: no symptoms Subjective alert and awake no events Objective Objective Last 24 Hour Vital Signs Date Time Temp Pulse Resp B/P Pulse Ox O2 Delivery O2 Flow Rate FiO2 05/26/16 04:00 97.7 81 20 129/71 97 Room Air 05/26/16 00:00 98.2 87 18 125/74 98 Room Air 05/25/16 19:00 97.7 92 20 115/72 100 Room Air 05/25/16 15:46 97.7 88 20 118/66 99 Room Air 05/25/16 12:00 98.1 94 20 113/69 100 Room Air Intake and Output 05/25/16 05/26/16 19:00 07:00 Intake Total 300 ml 1350 ml Balance 300 ml 1350 ml Intake Oral 1250 ml IV Total 300 ml 100 ml # Voids 5 Laboratory Tests 05/25/16 14:30: Erythrocyte Sedimentation Rate 61H, C-Reactive Protein, Quantitative 1.3H 05/26/16 05:40: White Blood Count 4.5L, Red Blood Count 3.31L, Hemoglobin 10.8L, Hematocrit 30.7L, Mean Corpuscular Volume 93, Mean Corpuscular Hemoglobin 32.5H, Mean Corpuscular Hemoglobin Concent 35.1, Red Cell Distribution Width 13.1, Platelet Count 205, Mean Platelet Volume 6.3L, Neutrophils (%) (Auto) 40.9L, Lymphocytes (%) (Auto) 37.7, Monocytes (%) (Auto) 12.1H, Eosinophils (%) (Auto) 8.6H, Basophils (%) (Auto) 0.7, Sodium Level 140, Potassium Level 3.9, Chloride Level 102, Carbon Dioxide Level 22, Anion Gap 16H, Blood Urea Nitrogen 17, Creatinine 1.0, Estimat Glomerular Filtration Rate > 60, Glucose Level 89, Hemoglobin A1c 4.4, Calcium Level 8.7, Total Bilirubin 0.2, Aspartate Amino Transf (AST/SGOT) 13, Alanine Aminotransferase (ALT/SGPT) 15, Alkaline Phosphatase 48, Total Protein 6.1L, Albumin 3.3L, Globulin 2.8, Albumin/Globulin Ratio 1.1, Triglycerides Level 57, Cholesterol Level 109, LDL Cholesterol 70, HDL Cholesterol 28, Cholesterol/HDL Ratio 3.9, Thyroid Stimulating Hormone (TSH) 2.180 Height (Feet): 6 Height (Inches): 4.00 Weight (Pounds): 180 Objective HEENT: Extraocular movement intact. Pupils are reactive to light and accommodation. NECK: No JVP. No LAD. No thyromegaly. LUNGS: Clear to auscultation. CARDIAC: Regular rate and rhythm. S1 and S2. No murmur. No rub. ABDOMEN: Soft, nontender, and nondistended. EXTREMITIES: Bilateral 2+ edema of lower extremity. He also has a rash with redness and increased warmth on both lower extremities, right worse than left, otherwise negative. DERRICK LOBO May 26, 2016 09:03
[2016-05-26] MEDS: Benztropine 1mg tab ORAL SCH ×2 (09:05→17:46)
[2016-05-26] MEDS: Depakote 500mg tab ORAL SCH ×2 (09:05→22:09)
[2016-05-26] MEDS: Tamsulosin 0.4mg cap ORAL SCH (09:05)
[2016-05-26] MEDS: Vancomycin 1250mg/D5W 250ml IVPB SCH ×2 (09:06)
[2016-05-26] MEDS: Heparin 5000 units/ml inj SUBQ SCH ×2 (09:08→22:07)
--- NOTE | 2016-05-26 14:47 | General Progress Note ---
Assessment/Plan Problem List: (1) Rash and other nonspecific skin eruption ICD Codes: R21 - Rash and other nonspecific skin eruption SNOMED: 784189274, 672512871 (2) Venous stasis ICD Codes: I87.8 - Other specified disorders of veins; I83.12 - Varicose veins of left lower extremity with inflammation SNOMED: 36404082 (3) Venous stasis dermatitis of both lower extremities ICD Codes: I83.11 - Varicose veins of right lower extremity with inflammation; I83.12 - Varicose veins of left lower extremity with inflammation SNOMED: 66331643 (4) Cellulitis of leg ICD Codes: L03.119 - Cellulitis of unspecified part of limb SNOMED: 524662696 (5) Edema of both legs ICD Codes: R60.0 - Localized edema SNOMED: 938910136 (6) Psychosis ICD Codes: F29 - Unspecified psychosis not due to a substance or known physiological condition SNOMED: 77685548 (7) Cellulitis ICD Codes: L03.90 - Cellulitis, unspecified SNOMED: 275630517 Status: stable, progressing, tolerating diet Assessment/Plan wound care abx ot pt diet cbc bmp in ltach eval Subjective Constitutional: Reports: weakness Allergies: Coded Allergies: No Known Allergies (Unverified , 05/24/16) All Systems: reviewed and negative except above Subjective calm in bed Objective Last 24 Hour Vital Signs Date Time Temp Pulse Resp B/P Pulse Ox O2 Delivery O2 Flow Rate FiO2 05/26/16 12:00 97.9 85 20 100/64 95 Room Air 05/26/16 08:00 98.7 79 19 106/59 95 Room Air 05/26/16 04:00 97.7 81 20 129/71 97 Room Air 05/26/16 00:00 98.2 87 18 125/74 98 Room Air 05/25/16 19:00 97.7 92 20 115/72 100 Room Air 05/25/16 15:46 97.7 88 20 118/66 99 Room Air Intake and Output 05/25/16 05/26/16 19:00 07:00 Intake Total 300 ml 1350 ml Balance 300 ml 1350 ml Intake Oral 1250 ml IV Total 300 ml 100 ml # Voids 5 Laboratory Tests 05/26/16 05:40: White Blood Count 4.5L, Red Blood Count 3.31L, Hemoglobin 10.8L, Hematocrit 30.7L, Mean Corpuscular Volume 93, Mean Corpuscular Hemoglobin 32.5H, Mean Corpuscular Hemoglobin Concent 35.1, Red Cell Distribution Width 13.1, Platelet Count 205, Mean Platelet Volume 6.3L, Neutrophils (%) (Auto) 40.9L, Lymphocytes (%) (Auto) 37.7, Monocytes (%) (Auto) 12.1H, Eosinophils (%) (Auto) 8.6H, Basophils (%) (Auto) 0.7, Sodium Level 140, Potassium Level 3.9, Chloride Level 102, Carbon Dioxide Level 22, Anion Gap 16H, Blood Urea Nitrogen 17, Creatinine 1.0, Estimat Glomerular Filtration Rate > 60, Glucose Level 89, Hemoglobin A1c 4.4, Calcium Level 8.7, Total Bilirubin 0.2, Aspartate Amino Transf (AST/SGOT) 13, Alanine Aminotransferase (ALT/SGPT) 15, Alkaline Phosphatase 48, Total Protein 6.1L, Albumin 3.3L, Globulin 2.8, Albumin/Globulin Ratio 1.1, Triglycerides Level 57, Cholesterol Level 109, LDL Cholesterol 70, HDL Cholesterol 28, Cholesterol/HDL Ratio 3.9, Thyroid Stimulating Hormone (TSH) 2.180 Height (Feet): 6 Height (Inches): 4.00 Weight (Pounds): 180 General Appearance: lethargic EENT: normal ENT inspection Neck: normal alignment Cardiovascular: normal peripheral pulses, normal rate, regular rhythm Respiratory/Chest: chest wall non-tender, lungs clear, normal breath sounds Abdomen: normal bowel sounds, non tender, soft Extremities: normal inspection Edema: no edema noted Arm (L), no edema noted Arm (R), no edema noted Leg (L), no edema noted Leg (R), no edema noted Pedal (L), no edema noted Pedal (R), no edema noted Generalized Neurologic: motor weakness Skin: normal pigmentation, warm/dry KALEB ELIZONDO May 26, 2016 14:47
--- NOTE | 2016-05-26 17:05 | Infectious Diseases Prog Note ---
Assessment/Plan Problems: (1) Cellulitis of leg Assessment & Plan: continue vancomycin and cefepime . monitor Sed rate and CRP (2) Venous stasis Assessment & Plan: recommend venous doplar to rule out dvt. keep leg elevated in bed (3) Edema of both legs Assessment & Plan: recommend diuresis, and doppler to rule out DVT Subjective ROS Limited/Unobtainable: Yes Allergies: Coded Allergies: No Known Allergies (Unverified , 05/24/16) Subjective resting in bed comfortable, not in distress, afebrile. Objective Vital Signs Last 24 Hour Vital Signs Date Time Temp Pulse Resp B/P Pulse Ox O2 Delivery O2 Flow Rate FiO2 05/26/16 12:00 97.9 85 20 100/64 95 Room Air 05/26/16 08:00 98.7 79 19 106/59 95 Room Air 05/26/16 04:00 97.7 81 20 129/71 97 Room Air 05/26/16 00:00 98.2 87 18 125/74 98 Room Air 05/25/16 19:00 97.7 92 20 115/72 100 Room Air Height (Feet): 6 Height (Inches): 4.00 Weight (Pounds): 180 General Appearance: WD/WN, no acute distress HEENT: normocephalic, atraumatic, anicteric, mucous membranes moist, PERRL Respiratory/Chest: chest wall non-tender, lungs clear, normal breath sounds, no respiratory distress, no accessory muscle use Cardiovascular: normal peripheral pulses, normal rate, regular rhythm, no gallop/murmur, no JVD Abdomen: normal bowel sounds, soft, non tender, no organomegaly, non distended , no mass, no scars Extremities: no cyanosis, no clubbing, other - redness and erythema Microbiology Date/Time Source Procedure Growth Status 05/24/16 22:25 Blood Blood Culture - Preliminary Resulted 05/24/16 22:10 Blood Blood Culture - Preliminary Resulted Laboratory Tests Test 05/26/16 05:40 White Blood Count 4.5 K/UL (4.8-10.8) L Red Blood Count 3.31 M/UL (4.70-6.10) L Hemoglobin 10.8 G/DL (14.2-18.0) L Hematocrit 30.7 % (42.0-52.0) L Mean Corpuscular Volume 93 FL (80-99) Mean Corpuscular Hemoglobin 32.5 PG (27.0-31.0) H Mean Corpuscular Hemoglobin Concent 35.1 G/DL (32.0-36.0) Red Cell Distribution Width 13.1 % (11.6-14.8) Platelet Count 205 K/UL (150-450) Mean Platelet Volume 6.3 FL (6.5-10.1) L Neutrophils (%) (Auto) 40.9 % (45.0-75.0) L Lymphocytes (%) (Auto) 37.7 % (20.0-45.0) Monocytes (%) (Auto) 12.1 % (1.0-10.0) H Eosinophils (%) (Auto) 8.6 % (0.0-3.0) H Basophils (%) (Auto) 0.7 % (0.0-2.0) Sodium Level 140 mEQ/L (135-145) Potassium Level 3.9 mEQ/L (3.4-4.9) Chloride Level 102 mEQ/L (98-107) Carbon Dioxide Level 22 mEQ/L (20-30) Anion Gap 16 (5-15) H Blood Urea Nitrogen 17 mg/dL (7-23) Creatinine 1.0 mg/dL (0.7-1.2) Estimat Glomerular Filtration Rate > 60 mL/min (>60) Glucose Level 89 mg/dL (74-106) Hemoglobin A1c 4.4 % (< 6.0) Calcium Level 8.7 mg/dL (8.6-10.2) Total Bilirubin 0.2 mg/dL (0.0-1.2) Aspartate Amino Transf (AST/SGOT) 13 U/L (5-40) Alanine Aminotransferase (ALT/SGPT) 15 U/L (3-41) Alkaline Phosphatase 48 U/L (40-129) Total Protein 6.1 g/dL (6.6-8.7) L Albumin 3.3 g/dL (3.5-5.2) L Globulin 2.8 g/dL Albumin/Globulin Ratio 1.1 (1.0-2.7) Triglycerides Level 57 mg/dL (< 150) Cholesterol Level 109 mg/dL (< 200) LDL Cholesterol 70 mg/dL (60-99) HDL Cholesterol 28 mg/dL (> 60) Cholesterol/HDL Ratio 3.9 (3.3-4.4) Thyroid Stimulating Hormone (TSH) 2.180 uIU/mL (0.300-4.500) Current Medications Medications (Trade) Dose Ordered Sig/Janay Route PRN Reason Start Time Stop Time Status Last Admin Dose Admin Acetaminophen (Tylenol) 650 mg Q4H PRN ORAL fever 05/25/16 04:00 06/24/16 03:59 05/25/16 15:38 Al Hydroxide/Mg Hydroxide (Mylanta II) 30 ml Q6H PRN ORAL dyspepsia 05/25/16 04:00 06/24/16 03:59 Benztropine Mesylate (Cogentin) 1 mg BID ORAL 05/25/16 18:00 06/24/16 17:59 05/26/16 09:05 Cefepime HCl 1 gm/ Dextrose 50 ml @ 50 mls/hr Q8H IVPB 05/25/16 05:00 06/01/16 04:59 05/26/16 13:57 Dextrose (Dextrose 50%) STAT PRN IV Hypoglycemia 05/25/16 04:00 06/24/16 03:59 Divalproex Sodium (Depakote) 500 mg DAILY ORAL 05/26/16 09:00 06/25/16 08:59 05/26/16 09:05 Divalproex Sodium (Depakote) 1,000 mg BEDTIME ORAL 05/25/16 21:00 06/24/16 20:59 05/25/16 21:52 Finasteride (Proscar) 5 mg DAILY ORAL 05/25/16 09:00 06/24/16 08:59 05/25/16 09:18 Heparin Sodium (Porcine) (Heparin 5000 units/ml) 5,000 units EVERY 12 HOURS SUBQ 05/25/16 09:00 06/24/16 08:59 05/26/16 09:08 Lorazepam (Ativan 2mg/ml 1ml) 0.5 mg Q4H PRN IV For Anxiety 05/25/16 04:00 06/01/16 03:59 Mirtazapine (Remeron) 15 mg BEDTIME ORAL 05/25/16 21:00 06/24/16 20:59 05/25/16 21:52 Morphine Sulfate (Morphine Sulfate) 1 mg Q4H PRN IVP For Pain 05/25/16 04:00 06/01/16 03:59 05/26/16 13:57 Olanzapine (ZyPREXA) 10 mg BEDTIME ORAL 05/25/16 21:00 06/24/16 20:59 05/25/16 21:52 Ondansetron HCl (Zofran) 4 mg Q6H PRN IVP Nausea & Vomiting 05/25/16 04:00 06/24/16 03:59 Polyethylene Glycol (Miralax) 17 gm HSPRN PRN ORAL Constipation 05/25/16 04:00 06/24/16 03:59 Tamsulosin HCl (Flomax) 0.4 mg DAILY ORAL 05/25/16 09:00 06/24/16 08:59 05/26/16 09:05 Vancomycin HCl 1 ea 1 ea DAILY PRN MISC Per rx protocol 05/25/16 04:00 06/24/16 03:59 Vancomycin HCl/ Dextrose (Vancomycin/D5W 250ml) 250 ml @ 166.667 mls/hr Q12H IVPB 05/25/16 10:00 05/30/16 09:59 05/26/16 09:06 Zolpidem Tartrate (Ambien) 5 mg HSPRN PRN ORAL Insomnia 05/25/16 04:00 06/24/16 03:59 Kathryn Cheung M.D. May 26, 2016 17:05
--- NOTE | 2016-05-26 18:07 | Pulmonology Progress Note ---
Assessment/Plan Problems: (1) Cellulitis (2) Edema of both legs (3) Venous stasis dermatitis of both lower extremities (4) Psychosis Assessment/Plan Assessment/Plan continue antibiotics check sensitivity of Gram positive check electrolytes check wbc improving Subjective ROS Limited/Unobtainable: No Constitutional: Reports: anorexia, fatigue Endocrine: Reports: feels warm Musculoskeletal: Reports: pain, stiffness, swelling Allergies: Coded Allergies: No Known Allergies (Unverified , 05/24/16) Objective Last 24 Hour Vital Signs Date Time Temp Pulse Resp B/P Pulse Ox O2 Delivery O2 Flow Rate FiO2 05/26/16 12:00 97.9 85 20 100/64 95 Room Air 05/26/16 08:00 98.7 79 19 106/59 95 Room Air 05/26/16 04:00 97.7 81 20 129/71 97 Room Air 05/26/16 00:00 98.2 87 18 125/74 98 Room Air 05/25/16 19:00 97.7 92 20 115/72 100 Room Air Intake and Output 05/25/16 05/26/16 19:00 07:00 Intake Total 300 ml 1350 ml Balance 300 ml 1350 ml Intake Oral 1250 ml IV Total 300 ml 100 ml # Voids 5 General Appearance: no acute distress HEENT: normocephalic, atraumatic, PERRL Respiratory/Chest: chest wall non-tender, decreased breath sounds, accessory muscle use Cardiovascular: normal peripheral pulses, normal rate, regular rhythm, no JVD Abdomen: normal bowel sounds, soft, non tender, no organomegaly, non distended Genitourinary: normal external genitalia Extremities: other - bilateral le edema Microbiology Date/Time Source Procedure Growth Status 05/24/16 22:25 Blood Blood Culture - Preliminary Resulted 05/24/16 22:10 Blood Blood Culture - Preliminary Resulted Laboratory Tests 05/26/16 05:40: White Blood Count 4.5L, Red Blood Count 3.31L, Hemoglobin 10.8L, Hematocrit 30.7L, Mean Corpuscular Volume 93, Mean Corpuscular Hemoglobin 32.5H, Mean Corpuscular Hemoglobin Concent 35.1, Red Cell Distribution Width 13.1, Platelet Count 205, Mean Platelet Volume 6.3L, Neutrophils (%) (Auto) 40.9L, Lymphocytes (%) (Auto) 37.7, Monocytes (%) (Auto) 12.1H, Eosinophils (%) (Auto) 8.6H, Basophils (%) (Auto) 0.7, Sodium Level 140, Potassium Level 3.9, Chloride Level 102, Carbon Dioxide Level 22, Anion Gap 16H, Blood Urea Nitrogen 17, Creatinine 1.0, Estimat Glomerular Filtration Rate > 60, Glucose Level 89, Hemoglobin A1c 4.4, Calcium Level 8.7, Total Bilirubin 0.2, Aspartate Amino Transf (AST/SGOT) 13, Alanine Aminotransferase (ALT/SGPT) 15, Alkaline Phosphatase 48, Total Protein 6.1L, Albumin 3.3L, Globulin 2.8, Albumin/Globulin Ratio 1.1, Triglycerides Level 57, Cholesterol Level 109, LDL Cholesterol 70, HDL Cholesterol 28, Cholesterol/HDL Ratio 3.9, Thyroid Stimulating Hormone (TSH) 2.180 Current Medications Medications (Trade) Dose Ordered Sig/Janay Route PRN Reason Start Time Stop Time Status Last Admin Dose Admin Acetaminophen (Tylenol) 650 mg Q4H PRN ORAL fever 05/25/16 04:00 06/24/16 03:59 05/25/16 15:38 Al Hydroxide/Mg Hydroxide (Mylanta II) 30 ml Q6H PRN ORAL dyspepsia 05/25/16 04:00 06/24/16 03:59 Benztropine Mesylate (Cogentin) 1 mg BID ORAL 05/25/16 18:00 06/24/16 17:59 05/26/16 17:46 Cefepime HCl 1 gm/ Dextrose 50 ml @ 50 mls/hr Q8H IVPB 05/25/16 05:00 06/01/16 04:59 05/26/16 13:57 Dextrose (Dextrose 50%) STAT PRN IV Hypoglycemia 05/25/16 04:00 06/24/16 03:59 Divalproex Sodium (Depakote) 500 mg DAILY ORAL 05/26/16 09:00 06/25/16 08:59 05/26/16 09:05 Divalproex Sodium (Depakote) 1,000 mg BEDTIME ORAL 05/25/16 21:00 06/24/16 20:59 05/25/16 21:52 Finasteride (Proscar) 5 mg DAILY ORAL 05/25/16 09:00 06/24/16 08:59 05/25/16 09:18 Heparin Sodium (Porcine) (Heparin 5000 units/ml) 5,000 units EVERY 12 HOURS SUBQ 05/25/16 09:00 06/24/16 08:59 05/26/16 09:08 Lorazepam (Ativan 2mg/ml 1ml) 0.5 mg Q4H PRN IV For Anxiety 05/25/16 04:00 06/01/16 03:59 Mirtazapine (Remeron) 15 mg BEDTIME ORAL 05/25/16 21:00 06/24/16 20:59 05/25/16 21:52 Morphine Sulfate (Morphine Sulfate) 1 mg Q4H PRN IVP For Pain 05/25/16 04:00 06/01/16 03:59 05/26/16 17:46 Olanzapine (ZyPREXA) 10 mg BEDTIME ORAL 05/25/16 21:00 06/24/16 20:59 05/25/16 21:52 Ondansetron HCl (Zofran) 4 mg Q6H PRN IVP Nausea & Vomiting 05/25/16 04:00 06/24/16 03:59 Polyethylene Glycol (Miralax) 17 gm HSPRN PRN ORAL Constipation 05/25/16 04:00 06/24/16 03:59 Tamsulosin HCl (Flomax) 0.4 mg DAILY ORAL 05/25/16 09:00 06/24/16 08:59 05/26/16 09:05 Vancomycin HCl 1 ea 1 ea DAILY PRN MISC Per rx protocol 05/25/16 04:00 06/24/16 03:59 Vancomycin HCl/ Dextrose (Vancomycin/D5W 250ml) 250 ml @ 166.667 mls/hr Q12H IVPB 05/25/16 10:00 05/30/16 09:59 05/26/16 09:06 Zolpidem Tartrate (Ambien) 5 mg HSPRN PRN ORAL Insomnia 05/25/16 04:00 06/24/16 03:59 FRANKO GUSMAN May 26, 2016 18:07
--- NOTE | 2016-05-26 20:28 | Cardiology Report ---
APPROVED REPORT EKG Measurement Heart [id number] Sinus tachycardia Otherwise normal ECG
--- NOTE | 2016-05-26 20:57 | Cardiology Progress Note ---
Assessment/Plan Assessment/Plan The patient is seen and examined, full consult note is dictated. Objective Last 24 Hour Vital Signs Date Time Temp Pulse Resp B/P Pulse Ox O2 Delivery O2 Flow Rate FiO2 05/26/16 16:00 98.2 104 20 140/86 100 Room Air 05/26/16 12:00 97.9 85 20 100/64 95 Room Air 05/26/16 08:00 98.7 79 19 106/59 95 Room Air 05/26/16 04:00 97.7 81 20 129/71 97 Room Air 05/26/16 00:00 98.2 87 18 125/74 98 Room Air Intake and Output 05/25/16 05/26/16 19:00 07:00 Intake Total 300 ml 1350 ml Balance 300 ml 1350 ml Intake Oral 1250 ml IV Total 300 ml 100 ml # Voids 5 Laboratory Tests Test 05/26/16 05:40 White Blood Count 4.5 K/UL (4.8-10.8) L Red Blood Count 3.31 M/UL (4.70-6.10) L Hemoglobin 10.8 G/DL (14.2-18.0) L Hematocrit 30.7 % (42.0-52.0) L Mean Corpuscular Volume 93 FL (80-99) Mean Corpuscular Hemoglobin 32.5 PG (27.0-31.0) H Mean Corpuscular Hemoglobin Concent 35.1 G/DL (32.0-36.0) Red Cell Distribution Width 13.1 % (11.6-14.8) Platelet Count 205 K/UL (150-450) Mean Platelet Volume 6.3 FL (6.5-10.1) L Neutrophils (%) (Auto) 40.9 % (45.0-75.0) L Lymphocytes (%) (Auto) 37.7 % (20.0-45.0) Monocytes (%) (Auto) 12.1 % (1.0-10.0) H Eosinophils (%) (Auto) 8.6 % (0.0-3.0) H Basophils (%) (Auto) 0.7 % (0.0-2.0) Sodium Level 140 mEQ/L (135-145) Potassium Level 3.9 mEQ/L (3.4-4.9) Chloride Level 102 mEQ/L (98-107) Carbon Dioxide Level 22 mEQ/L (20-30) Anion Gap 16 (5-15) H Blood Urea Nitrogen 17 mg/dL (7-23) Creatinine 1.0 mg/dL (0.7-1.2) Estimat Glomerular Filtration Rate > 60 mL/min (>60) Glucose Level 89 mg/dL (74-106) Hemoglobin A1c 4.4 % (< 6.0) Calcium Level 8.7 mg/dL (8.6-10.2) Total Bilirubin 0.2 mg/dL (0.0-1.2) Aspartate Amino Transf (AST/SGOT) 13 U/L (5-40) Alanine Aminotransferase (ALT/SGPT) 15 U/L (3-41) Alkaline Phosphatase 48 U/L (40-129) Total Protein 6.1 g/dL (6.6-8.7) L Albumin 3.3 g/dL (3.5-5.2) L Globulin 2.8 g/dL Albumin/Globulin Ratio 1.1 (1.0-2.7) Triglycerides Level 57 mg/dL (< 150) Cholesterol Level 109 mg/dL (< 200) LDL Cholesterol 70 mg/dL (60-99) HDL Cholesterol 28 mg/dL (> 60) Cholesterol/HDL Ratio 3.9 (3.3-4.4) Thyroid Stimulating Hormone (TSH) 2.180 uIU/mL (0.300-4.500) Microbiology Date/Time Source Procedure Growth Status 05/24/16 22:25 Blood Blood Culture - Preliminary Resulted 05/24/16 22:10 Blood Blood Culture - Preliminary Resulted RASHAD VALENTIN May 26, 2016 20:57
[2016-05-27] VITALS: BP 117/53
[2016-05-27] MEDS: Vancomycin 1250mg/D5W 250ml IVPB SCH ×6 (00:33→22:05)
[2016-05-27 04:00] VITALS: BP 121/66
[2016-05-27] MEDS: Morphine Sulfate 2mg/ml Inj IVP PRN ×4 (05:41→18:58)
[2016-05-27 08:14] VITALS: BP 110/67
--- NOTE | 2016-05-27 08:36 | General Progress Note ---
Assessment/Plan Problem List: (1) Rash and other nonspecific skin eruption ICD Codes: R21 - Rash and other nonspecific skin eruption SNOMED: 482050144, 719047283 (2) Venous stasis ICD Codes: I87.8 - Other specified disorders of veins; I83.12 - Varicose veins of left lower extremity with inflammation SNOMED: 70664161 (3) Venous stasis dermatitis of both lower extremities ICD Codes: I83.11 - Varicose veins of right lower extremity with inflammation; I83.12 - Varicose veins of left lower extremity with inflammation SNOMED: 75528967 (4) Cellulitis of leg ICD Codes: L03.119 - Cellulitis of unspecified part of limb SNOMED: 715198908 (5) Edema of both legs ICD Codes: R60.0 - Localized edema SNOMED: 464239908 (6) Psychosis ICD Codes: F29 - Unspecified psychosis not due to a substance or known physiological condition SNOMED: 58672613 (7) Cellulitis ICD Codes: L03.90 - Cellulitis, unspecified SNOMED: 492993079 Status: stable, progressing, tolerating diet Assessment/Plan wound care abx ot pt diet dc to snf Subjective Constitutional: Reports: weakness Allergies: Coded Allergies: No Known Allergies (Unverified , 05/24/16) All Systems: reviewed and negative except above Subjective calm in bed Objective Last 24 Hour Vital Signs Date Time Temp Pulse Resp B/P Pulse Ox O2 Delivery O2 Flow Rate FiO2 05/27/16 08:14 98.3 82 20 110/67 97 Room Air 05/27/16 04:00 98.1 79 18 121/66 95 Room Air 05/27/16 00:00 98.0 84 18 117/53 98 Room Air 05/26/16 20:00 97.4 84 18 137/62 98 Room Air 05/26/16 16:00 98.2 104 20 140/86 100 Room Air 05/26/16 12:00 97.9 85 20 100/64 95 Room Air Intake and Output 05/26/16 05/27/16 19:00 07:00 Intake Total 360 ml 1050.000 ml Balance 360 ml 1050.000 ml Intake Oral 360 ml 750 ml IV Total 300.000 ml # Voids 1 Laboratory Tests 05/26/16 21:30: Vancomycin Level Trough 18.8H Height (Feet): 6 Height (Inches): 4.00 Weight (Pounds): 180 General Appearance: lethargic EENT: normal ENT inspection Neck: normal alignment Cardiovascular: normal peripheral pulses, normal rate, regular rhythm Respiratory/Chest: chest wall non-tender, lungs clear, normal breath sounds Abdomen: normal bowel sounds, non tender, soft Extremities: normal inspection Edema: no edema noted Arm (L), no edema noted Arm (R), no edema noted Leg (L), no edema noted Leg (R), no edema noted Pedal (L), no edema noted Pedal (R), no edema noted Generalized Neurologic: motor weakness Skin: normal pigmentation, warm/dry KALEB ELIZONDO May 27, 2016 08:36
[2016-05-27] MEDS: Benztropine 1mg tab ORAL SCH ×2 (09:34→18:50)
[2016-05-27] MEDS: Tamsulosin 0.4mg cap ORAL SCH (09:34)
[2016-05-27] MEDS: Depakote 500mg tab ORAL SCH ×2 (09:34→22:02)
[2016-05-27] MEDS: Heparin 5000 units/ml inj SUBQ SCH ×2 (09:39→22:03)
--- NOTE | 2016-05-27 10:03 | Nephrology Progress Note ---
Assessment/Plan Assessment 1.bilateral lower ext cellulitis 2.venous stasis 3.Htn 4.hyponatremia Plan plan to continue iv antibiotic diuresis monitoring electrolyte avoid NSAID Subjective Constitutional: Reports: no symptoms HEENT: Reports: no symptoms Genitourinary: Reports: no symptoms Neurologic/Psychiatric: Reports: no symptoms Subjective alert and awake no events Objective Objective Last 24 Hour Vital Signs Date Time Temp Pulse Resp B/P Pulse Ox O2 Delivery O2 Flow Rate FiO2 05/27/16 08:14 98.3 82 20 110/67 97 Room Air 05/27/16 04:00 98.1 79 18 121/66 95 Room Air 05/27/16 00:00 98.0 84 18 117/53 98 Room Air 05/26/16 20:00 97.4 84 18 137/62 98 Room Air 05/26/16 16:00 98.2 104 20 140/86 100 Room Air 05/26/16 12:00 97.9 85 20 100/64 95 Room Air Intake and Output 05/26/16 05/27/16 19:00 07:00 Intake Total 360 ml 1050.000 ml Balance 360 ml 1050.000 ml Intake Oral 360 ml 750 ml IV Total 300.000 ml # Voids 1 Laboratory Tests 05/26/16 21:30: Vancomycin Level Trough 18.8H Height (Feet): 6 Height (Inches): 4.00 Weight (Pounds): 180 Objective HEENT: Extraocular movement intact. Pupils are reactive to light and accommodation. NECK: No JVP. No LAD. No thyromegaly. LUNGS: Clear to auscultation. CARDIAC: Regular rate and rhythm. S1 and S2. No murmur. No rub. ABDOMEN: Soft, nontender, and nondistended. EXTREMITIES: Bilateral 2+ edema of lower extremity. He also has a rash with redness and increased warmth on both lower extremities, right worse than left, otherwise negative. DERRICK LOBO May 27, 2016 10:03
[2016-05-27 10:16] LABS: BASOPHILS % (AUTO) 0.8 % (0.0-2.0); EOSINOPHILS % (AUTO) 7.3 % (0.0-3.0); LYMPHOCYTES % (AUTO) 38.7 % (20.0-45.0); MEAN CORPUSCULAR HEMOGLOBIN 31.7 PG (27.0-31.0); MEAN CORPUSCULAR HGB CONC 34.4 G/DL (32.0-36.0); MEAN CORPUSCULAR VOLUME 92 FL (80-99); MEAN PLATELET VOLUME 6.2 FL (6.5-10.1); NEUTROPHILS % (AUTO) 40.3 % (45.0-75.0); PLATELET COUNT 194 K/UL (150-450); RED BLOOD COUNT 3.45 M/UL (4.70-6.10); RED CELL DISTRIBUTION WIDTH 13.1 % (11.6-14.8); WHITE BLOOD COUNT 4.4 K/UL (4.8-10.8)
--- NOTE | 2016-05-27 10:36 | Nephrology Progress Note ---
Assessment/Plan Assessment 1.bilateral lower ext cellulitis 2.venous stasis 3.Htn 4.hyponatremia Plan plan to continue iv antibiotic diuresis monitoring electrolyte avoid NSAID Subjective Constitutional: Reports: no symptoms HEENT: Reports: no symptoms Genitourinary: Reports: no symptoms Neurologic/Psychiatric: Reports: no symptoms Subjective alert and awake no events Objective Objective Last 24 Hour Vital Signs Date Time Temp Pulse Resp B/P Pulse Ox O2 Delivery O2 Flow Rate FiO2 05/27/16 08:14 98.3 82 20 110/67 97 Room Air 05/27/16 04:00 98.1 79 18 121/66 95 Room Air 05/27/16 00:00 98.0 84 18 117/53 98 Room Air 05/26/16 20:00 97.4 84 18 137/62 98 Room Air 05/26/16 16:00 98.2 104 20 140/86 100 Room Air 05/26/16 12:00 97.9 85 20 100/64 95 Room Air Intake and Output 05/26/16 05/27/16 19:00 07:00 Intake Total 360 ml 1050.000 ml Balance 360 ml 1050.000 ml Intake Oral 360 ml 750 ml IV Total 300.000 ml # Voids 1 Laboratory Tests 05/26/16 21:30: Vancomycin Level Trough 18.8H 05/27/16 09:40: White Blood Count 4.4L, Red Blood Count 3.45L, Hemoglobin 10.9L, Hematocrit 31.8L, Mean Corpuscular Volume 92, Mean Corpuscular Hemoglobin 31.7H, Mean Corpuscular Hemoglobin Concent 34.4, Red Cell Distribution Width 13.1, Platelet Count 194, Mean Platelet Volume 6.2L, Neutrophils (%) (Auto) 40.3L, Lymphocytes (%) (Auto) 38.7, Monocytes (%) (Auto) 13.0H, Eosinophils (%) (Auto) 7.3H, Basophils (%) (Auto) 0.8, Sodium Level [Pending], Potassium Level [Pending], Chloride Level [Pending], Carbon Dioxide Level [Pending], Blood Urea Nitrogen [ Pending], Creatinine [Pending], Estimat Glomerular Filtration Rate [Pending], Glucose Level [Pending], Calcium Level [Pending] Height (Feet): 6 Height (Inches): 4.00 Weight (Pounds): 180 Objective HEENT: Extraocular movement intact. Pupils are reactive to light and accommodation. NECK: No JVP. No LAD. No thyromegaly. LUNGS: Clear to auscultation. CARDIAC: Regular rate and rhythm. S1 and S2. No murmur. No rub. ABDOMEN: Soft, nontender, and nondistended. EXTREMITIES: Bilateral 2+ edema of lower extremity. He also has a rash with redness and increased warmth on both lower extremities, right worse than left, otherwise negative. DERRICK LOBO May 27, 2016 10:36
[2016-05-27 10:38] LABS: ANION GAP 13 (5-15); CALCIUM 8.7 mg/dL (8.6-10.2); CARBON DIOXIDE 23 mEQ/L (20-30); CHLORIDE 100 mEQ/L (98-107); CREATININE 0.9 mg/dL (0.7-1.2); GLOMERULAR FILTRATION RATE > 60 mL/min (>60); HEMOLYSIS 3; POTASSIUM 4.3 mEQ/L (3.4-4.9); SODIUM 136 mEQ/L (135-145)
[2016-05-27 11:36] VITALS: BP 116/77
[2016-05-27] MEDS ORDERED: NS 55ml IV ONE (15:53)
--- NOTE | 2016-05-27 15:53 | Pulmonology Progress Note ---
Assessment/Plan Problems: (1) Bacteremia (2) Cellulitis (3) Edema of both legs (4) Venous stasis dermatitis of both lower extremities (5) Psychosis Assessment/Plan continue antibiotics check sensitivity of Gram positive check electrolytes check wbc improving Subjective ROS Limited/Unobtainable: No Interval Events: no new cultures Allergies: Coded Allergies: No Known Allergies (Unverified , 05/24/16) Objective Last 24 Hour Vital Signs Date Time Temp Pulse Resp B/P Pulse Ox O2 Delivery O2 Flow Rate FiO2 05/27/16 11:36 98.6 67 20 116/77 95 Room Air 05/27/16 10:53 98.3 05/27/16 08:14 98.3 82 20 110/67 97 Room Air 05/27/16 04:00 98.1 79 18 121/66 95 Room Air 05/27/16 00:00 98.0 84 18 117/53 98 Room Air 05/26/16 20:00 97.4 84 18 137/62 98 Room Air 05/26/16 16:00 98.2 104 20 140/86 100 Room Air Intake and Output 05/26/16 05/27/16 19:00 07:00 Intake Total 360 ml 1050.000 ml Balance 360 ml 1050.000 ml Intake Oral 360 ml 750 ml IV Total 300.000 ml # Voids 1 General Appearance: WD/WN HEENT: normocephalic, atraumatic Respiratory/Chest: chest wall non-tender, lungs clear Cardiovascular: normal peripheral pulses, normal rate Abdomen: normal bowel sounds, soft, non tender Extremities: no cyanosis Microbiology Date/Time Source Procedure Growth Status 05/24/16 22:25 Blood Blood Culture - Preliminary Staphylococcus Sp Coag Neg Resulted 05/24/16 22:10 Blood Blood Culture - Preliminary Staphylococcus Sp Coag Neg Resulted 05/25/16 01:35 Nasal Nares MRSA Culture - Final NO METHICILLIN RESISTANT STAPH AUREUS... Complete 05/25/16 01:35 Rectum VRE Culture - Final Enterococcus Faecium - Vre Complete Laboratory Tests 05/26/16 21:30: Vancomycin Level Trough 18.8H 05/27/16 09:40: White Blood Count 4.4L, Red Blood Count 3.45L, Hemoglobin 10.9L, Hematocrit 31.8L, Mean Corpuscular Volume 92, Mean Corpuscular Hemoglobin 31.7H, Mean Corpuscular Hemoglobin Concent 34.4, Red Cell Distribution Width 13.1, Platelet Count 194, Mean Platelet Volume 6.2L, Neutrophils (%) (Auto) 40.3L, Lymphocytes (%) (Auto) 38.7, Monocytes (%) (Auto) 13.0H, Eosinophils (%) (Auto) 7.3H, Basophils (%) (Auto) 0.8, Sodium Level 136, Potassium Level 4.3, Chloride Level 100, Carbon Dioxide Level 23, Anion Gap 13, Blood Urea Nitrogen 19, Creatinine 0.9, Estimat Glomerular Filtration Rate > 60, Glucose Level 98, Calcium Level 8.7 Current Medications Medications (Trade) Dose Ordered Sig/Janay Route PRN Reason Start Time Stop Time Status Last Admin Dose Admin Acetaminophen (Tylenol) 650 mg Q4H PRN ORAL fever 05/25/16 04:00 06/24/16 03:59 05/25/16 15:38 Al Hydroxide/Mg Hydroxide (Mylanta II) 30 ml Q6H PRN ORAL dyspepsia 05/25/16 04:00 06/24/16 03:59 Benztropine Mesylate (Cogentin) 1 mg BID ORAL 05/25/16 18:00 06/24/16 17:59 05/27/16 09:34 Dextrose (Dextrose 50%) STAT PRN IV Hypoglycemia 05/25/16 04:00 06/24/16 03:59 Divalproex Sodium (Depakote) 500 mg DAILY ORAL 05/26/16 09:00 06/25/16 08:59 05/27/16 09:34 Divalproex Sodium (Depakote) 1,000 mg BEDTIME ORAL 05/25/16 21:00 06/24/16 20:59 05/26/16 22:09 Finasteride (Proscar) 5 mg DAILY ORAL 05/25/16 09:00 06/24/16 08:59 05/27/16 09:34 Heparin Sodium (Porcine) (Heparin 5000 units/ml) 5,000 units EVERY 12 HOURS SUBQ 05/25/16 09:00 06/24/16 08:59 05/27/16 09:39 Lorazepam (Ativan 2mg/ml 1ml) 0.5 mg Q4H PRN IV For Anxiety 05/25/16 04:00 06/01/16 03:59 Mirtazapine (Remeron) 15 mg BEDTIME ORAL 05/25/16 21:00 06/24/16 20:59 05/26/16 22:08 Morphine Sulfate (Morphine Sulfate) 1 mg Q4H PRN IVP For Pain 05/25/16 04:00 06/01/16 03:59 05/27/16 15:00 Olanzapine (ZyPREXA) 10 mg BEDTIME ORAL 05/25/16 21:00 06/24/16 20:59 05/26/16 22:08 Ondansetron HCl (Zofran) 4 mg Q6H PRN IVP Nausea & Vomiting 05/25/16 04:00 06/24/16 03:59 Polyethylene Glycol (Miralax) 17 gm HSPRN PRN ORAL Constipation 05/25/16 04:00 06/24/16 03:59 Tamsulosin HCl (Flomax) 0.4 mg DAILY ORAL 05/25/16 09:00 06/24/16 08:59 05/27/16 09:34 Vancomycin HCl 1 ea 1 ea DAILY PRN MISC Per rx protocol 05/25/16 04:00 06/24/16 03:59 Vancomycin HCl/ Dextrose (Vancomycin/D5W 250ml) 250 ml @ 166.667 mls/hr Q12H IVPB 05/25/16 10:00 05/30/16 09:59 05/27/16 09:35 Zolpidem Tartrate (Ambien) 5 mg HSPRN PRN ORAL Insomnia 05/25/16 04:00 06/24/16 03:59 FRANKO GUSMAN May 27, 2016 15:53
[2016-05-27 16:00] VITALS: BP 117/54
[2016-05-27] MEDS ORDERED: NS 275ml ONE (18:27)
[2016-05-27] MEDS ORDERED: Tubing IV Secondary IV ONE (18:27)
--- NOTE | 2016-05-27 18:53 | Infectious Diseases Prog Note ---
Assessment/Plan Problems: (1) Sepsis Assessment & Plan: with coag negative staph, most likely source is his skin, echocardiogram showed vegetations on the aortic valve, suggestive of endocarditis. will await sensitivity result, continue vancomycin for 6 weeks for endocarditis , will repeat blood culture to confirm clearance (2) Edema of both legs Assessment & Plan: recommend diuresis, and doppler to rule out DVT (3) Cellulitis of leg Assessment & Plan: continue vancomycin, D/C cefepime . monitor Sed rate and CRP (4) Venous stasis Assessment & Plan: recommend venous doplar to rule out dvt. keep leg elevated in bed Subjective Constitutional: Denies: anorexia, chills, drenching sweats, fatigue, fever, no symptoms, other HEENT: Denies: congestion, coryza, dysphagia, hearing change, no symptoms, other, visual change Respiratory: Denies: dry cough, no symptoms, other, productive cough, shortness of breath Breasts: Denies: discharge, no symptoms, other, swelling, tenderness Cardiovascular: Denies: chest pain, dyspnea on exertion, no symptoms, other, palpitations Gastrointestinal/Abdominal: Denies: bloating, blood in stool, constipation, diarrhea, nausea, no symptoms, other, vomiting Genitourinary: Denies: dysuria, frequency, hematuria, no symptoms, nocturia, other Psychiatric: Denies: anxiety, depression, no symptoms, other Skin: Reports: other - redness Allergies: Coded Allergies: No Known Allergies (Unverified , 05/24/16) Subjective feels better, resting in bed comfortable, not in distress, afebrile. Objective Vital Signs Last 24 Hour Vital Signs Date Time Temp Pulse Resp B/P Pulse Ox O2 Delivery O2 Flow Rate FiO2 05/27/16 16:00 98.1 82 20 117/54 99 Room Air 05/27/16 15:30 98.6 05/27/16 11:36 98.6 67 20 116/77 95 Room Air 05/27/16 08:14 98.3 82 20 110/67 97 Room Air 05/27/16 04:00 98.1 79 18 121/66 95 Room Air 05/27/16 00:00 98.0 84 18 117/53 98 Room Air 05/26/16 20:00 97.4 84 18 137/62 98 Room Air Height (Feet): 6 Height (Inches): 4.00 Weight (Pounds): 180 General Appearance: WD/WN, no acute distress HEENT: normocephalic, atraumatic, anicteric, mucous membranes moist, PERRL Respiratory/Chest: chest wall non-tender, lungs clear, normal breath sounds, no respiratory distress, no accessory muscle use Cardiovascular: normal peripheral pulses, normal rate, regular rhythm, no gallop/murmur, no JVD Abdomen: normal bowel sounds, soft, non tender, no organomegaly, non distended , no mass, no scars Skin: no rash, no lesions, other - redness Microbiology Date/Time Source Procedure Growth Status 05/24/16 22:25 Blood Blood Culture - Preliminary Staphylococcus Sp Coag Neg Resulted 05/24/16 22:10 Blood Blood Culture - Preliminary Staphylococcus Sp Coag Neg Resulted 05/25/16 01:35 Nasal Nares MRSA Culture - Final NO METHICILLIN RESISTANT STAPH AUREUS... Complete 05/25/16 01:35 Rectum VRE Culture - Final Enterococcus Faecium - Vre Complete Laboratory Tests Test 05/26/16 21:30 05/27/16 09:40 Vancomycin Level Trough 18.8 ug/mL (5.0-12.0) H White Blood Count 4.4 K/UL (4.8-10.8) L Red Blood Count 3.45 M/UL (4.70-6.10) L Hemoglobin 10.9 G/DL (14.2-18.0) L Hematocrit 31.8 % (42.0-52.0) L Mean Corpuscular Volume 92 FL (80-99) Mean Corpuscular Hemoglobin 31.7 PG (27.0-31.0) H Mean Corpuscular Hemoglobin Concent 34.4 G/DL (32.0-36.0) Red Cell Distribution Width 13.1 % (11.6-14.8) Platelet Count 194 K/UL (150-450) Mean Platelet Volume 6.2 FL (6.5-10.1) L Neutrophils (%) (Auto) 40.3 % (45.0-75.0) L Lymphocytes (%) (Auto) 38.7 % (20.0-45.0) Monocytes (%) (Auto) 13.0 % (1.0-10.0) H Eosinophils (%) (Auto) 7.3 % (0.0-3.0) H Basophils (%) (Auto) 0.8 % (0.0-2.0) Sodium Level 136 mEQ/L (135-145) Potassium Level 4.3 mEQ/L (3.4-4.9) Chloride Level 100 mEQ/L (98-107) Carbon Dioxide Level 23 mEQ/L (20-30) Anion Gap 13 (5-15) Blood Urea Nitrogen 19 mg/dL (7-23) Creatinine 0.9 mg/dL (0.7-1.2) Estimat Glomerular Filtration Rate > 60 mL/min (>60) Glucose Level 98 mg/dL (74-106) Calcium Level 8.7 mg/dL (8.6-10.2) Current Medications Medications (Trade) Dose Ordered Sig/Janay Route PRN Reason Start Time Stop Time Status Last Admin Dose Admin Acetaminophen (Tylenol) 650 mg Q4H PRN ORAL fever 05/25/16 04:00 06/24/16 03:59 05/25/16 15:38 Al Hydroxide/Mg Hydroxide (Mylanta II) 30 ml Q6H PRN ORAL dyspepsia 05/25/16 04:00 06/24/16 03:59 Benztropine Mesylate (Cogentin) 1 mg BID ORAL 05/25/16 18:00 06/24/16 17:59 05/27/16 09:34 Dextrose (Dextrose 50%) STAT PRN IV Hypoglycemia 05/25/16 04:00 06/24/16 03:59 Divalproex Sodium (Depakote) 500 mg DAILY ORAL 05/26/16 09:00 06/25/16 08:59 05/27/16 09:34 Divalproex Sodium (Depakote) 1,000 mg BEDTIME ORAL 05/25/16 21:00 06/24/16 20:59 05/26/16 22:09 Finasteride (Proscar) 5 mg DAILY ORAL 05/25/16 09:00 06/24/16 08:59 05/27/16 09:34 Heparin Sodium (Porcine) (Heparin 5000 units/ml) 5,000 units EVERY 12 HOURS SUBQ 05/25/16 09:00 06/24/16 08:59 05/27/16 09:39 Lorazepam (Ativan 2mg/ml 1ml) 0.5 mg Q4H PRN IV For Anxiety 05/25/16 04:00 06/01/16 03:59 Mirtazapine (Remeron) 15 mg BEDTIME ORAL 05/25/16 21:00 06/24/16 20:59 05/26/16 22:08 Morphine Sulfate (Morphine Sulfate) 1 mg Q4H PRN IVP For Pain 05/25/16 04:00 06/01/16 03:59 05/27/16 15:00 Olanzapine (ZyPREXA) 10 mg BEDTIME ORAL 05/25/16 21:00 06/24/16 20:59 05/26/16 22:08 Ondansetron HCl (Zofran) 4 mg Q6H PRN IVP Nausea & Vomiting 05/25/16 04:00 06/24/16 03:59 Polyethylene Glycol (Miralax) 17 gm HSPRN PRN ORAL Constipation 05/25/16 04:00 06/24/16 03:59 Tamsulosin HCl (Flomax) 0.4 mg DAILY ORAL 05/25/16 09:00 06/24/16 08:59 05/27/16 09:34 Vancomycin HCl 1 ea 1 ea DAILY PRN MISC Per rx protocol 05/25/16 04:00 06/24/16 03:59 Vancomycin HCl/ Dextrose (Vancomycin/D5W 250ml) 250 ml @ 166.667 mls/hr Q12H IVPB 05/25/16 10:00 05/30/16 09:59 05/27/16 09:35 Zolpidem Tartrate (Ambien) 5 mg HSPRN PRN ORAL Insomnia 05/25/16 04:00 06/24/16 03:59 Kathryn Cheung M.D. May 27, 2016 18:53
[2016-05-27 19:00] VITALS: BP 104/61
--- NOTE | 2016-05-27 20:07 | Consultation ---
DATE OF CONSULTATION: NOTE: POOR AUDIO QUALITY HISTORY OF PRESENT ILLNESS: The patient is a 55-year-old male patient, who is disorganized, confused, altered mental status , 36. There is no viable plan for safety and self-care and requires frequent hospitalizations for stabilization of his symptoms. The patient is having a difficult time with his memory and suicidal or homicidal thoughts of ideation, visual hallucination. The patient . This clinician assessed this patient. PAST MEDICAL HISTORY: History of encephalopathy and ALLERGIES: The patient has no known drug allergies. SUBSTANCE ABUSE HISTORY: The patient denies any history of alcohol use, illicit substance use, or smoking cigarettes. PSYCHIATRIC HISTORY: The patient has a history of depression and anxiety, currently . SOCIAL HISTORY: The patient is a 55-year-old male. The patient lives in financially sustained through Medicare. MENTAL STATUS EXAMINATION: The patient is alert and oriented x2 to person and place. Mood is depressed and irritable. Affect is congruent. Thought process is disorganized. Thought content, confused. The patient has poor attention and concentration. Poor insight, judgment, and impulse control. DIAGNOSES: AXIS I: AXIS II: Deferred. AXIS III: Per History and Physical. AXIS IV: Problems with social environment. PLAN: This clinician assessed this patient. Provided the patient with supportive psychotherapy, reality orientation, and coping skills. Encouraging the patient to participate in treatment as well as medication regimen. Continue with medication management and behavioral management. This clinician has reviewed the patient's chart. Discussed the treatment with the nursing staff. Margret Casey PsyD. DR: Kiley JOB#: [id number] CC:
[2016-05-28] VITALS: BP 116/66
[2016-05-28] MEDS: Morphine Sulfate 2mg/ml Inj IVP PRN ×3 (00:54→17:25)
--- NOTE | 2016-05-28 02:58 | Consultation ---
DATE OF CONSULTATION: PSYCHOTHERAPY CONSULTATION PROGRESS NOTE: CONSULTING PHYSICIAN: Margret Casey M.D. TREATING ATTENDING: Santhosh Dias D.O. HISTORY OF PRESENT ILLNESS: The patient is a 55-year-old male anxious, irritable, depressed, confused keeps himself. This clinician assessed the patient and provided with supportive psychotherapy, reality orientation, and coping skills patient's depression, anxiety, mood instability the patient requires continuous hospitalization for stabilization. Continue with medication management and behavioral management. This clinician has reviewed the patient's chart. Discussed the treatment with nursing staff. Margret Casey PsyD. DR: Kobi JOB#: [id number] CC:
[2016-05-28 04:00] VITALS: BP 114/61
[2016-05-28 08:13] VITALS: BP 109/59
[2016-05-28] MEDS: Tamsulosin 0.4mg cap ORAL SCH (09:06)
[2016-05-28] MEDS: Vancomycin 1250mg/D5W 250ml IVPB SCH ×4 (09:06→21:16)
[2016-05-28] MEDS: Depakote 500mg tab ORAL SCH ×2 (09:06→21:14)
[2016-05-28] MEDS: Benztropine 1mg tab ORAL SCH ×2 (09:06→17:24)
[2016-05-28] MEDS: Heparin 5000 units/ml inj SUBQ SCH ×2 (09:13→21:12)
--- NOTE | 2016-05-28 11:46 | Pulmonology Progress Note ---
Assessment/Plan Problems: (1) Bacteremia (2) Cellulitis (3) Edema of both legs (4) Venous stasis dermatitis of both lower extremities (5) Psychosis Assessment/Plan continue antibiotics check sensitivity of Gram positive check electrolytes check wbc improving Subjective ROS Limited/Unobtainable: No Constitutional: Reports: fatigue Skin: Reports: rash, ulcer Musculoskeletal: Reports: pain, stiffness, swelling Allergies: Coded Allergies: No Known Allergies (Unverified , 05/24/16) Objective Last 24 Hour Vital Signs Date Time Temp Pulse Resp B/P Pulse Ox O2 Delivery O2 Flow Rate FiO2 05/28/16 08:13 98.1 75 20 109/59 95 Room Air 05/28/16 04:00 96.8 78 18 114/61 96 Room Air 05/28/16 00:00 98.2 81 18 116/66 95 Room Air 05/27/16 19:00 97.5 80 20 104/61 97 Room Air 05/27/16 16:00 98.1 82 20 117/54 99 Room Air 05/27/16 15:30 98.6 Intake and Output 05/27/16 05/28/16 19:00 07:00 Intake Total 480 ml 490.000 ml Balance 480 ml 490.000 ml Intake Oral 480 ml 240 ml IV Total 250.000 ml # Voids 6 General Appearance: no acute distress HEENT: normocephalic, atraumatic, PERRL Respiratory/Chest: chest wall non-tender, decreased breath sounds, accessory muscle use Cardiovascular: normal peripheral pulses, normal rate, regular rhythm, no JVD Abdomen: normal bowel sounds, soft, non tender, no organomegaly Genitourinary: normal external genitalia Extremities: no cyanosis Skin: rash, lesions, ulcers 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, no motor/sensory deficits Current Medications Medications (Trade) Dose Ordered Sig/Janay Route PRN Reason Start Time Stop Time Status Last Admin Dose Admin Acetaminophen (Tylenol) 650 mg Q4H PRN ORAL fever 05/25/16 04:00 06/24/16 03:59 05/25/16 15:38 Al Hydroxide/Mg Hydroxide (Mylanta II) 30 ml Q6H PRN ORAL dyspepsia 05/25/16 04:00 06/24/16 03:59 Benztropine Mesylate (Cogentin) 1 mg BID ORAL 05/25/16 18:00 2/10/17 17:59 05/28/16 09:06 Dextrose (Dextrose 50%) STAT PRN IV Hypoglycemia 05/25/16 04:00 06/24/16 03:59 Divalproex Sodium (Depakote) 500 mg DAILY ORAL 05/26/16 09:00 06/25/16 08:59 05/28/16 09:06 Divalproex Sodium (Depakote) 1,000 mg BEDTIME ORAL 05/25/16 21:00 06/24/16 20:59 05/27/16 22:02 Finasteride (Proscar) 5 mg DAILY ORAL 05/25/16 09:00 06/24/16 08:59 05/28/16 09:06 Heparin Sodium (Porcine) (Heparin 5000 units/ml) 5,000 units EVERY 12 HOURS SUBQ 05/25/16 09:00 06/24/16 08:59 05/28/16 09:13 Lorazepam (Ativan 2mg/ml 1ml) 0.5 mg Q4H PRN IV For Anxiety 05/25/16 04:00 06/01/16 03:59 Mirtazapine (Remeron) 15 mg BEDTIME ORAL 05/25/16 21:00 06/24/16 20:59 05/27/16 22:01 Morphine Sulfate (Morphine Sulfate) 1 mg Q4H PRN IVP For Pain 05/25/16 04:00 06/01/16 03:59 05/28/16 11:21 Olanzapine (ZyPREXA) 10 mg BEDTIME ORAL 05/25/16 21:00 06/24/16 20:59 05/27/16 22:02 Ondansetron HCl (Zofran) 4 mg Q6H PRN IVP Nausea & Vomiting 05/25/16 04:00 06/24/16 03:59 Polyethylene Glycol (Miralax) 17 gm HSPRN PRN ORAL Constipation 05/25/16 04:00 06/24/16 03:59 Tamsulosin HCl (Flomax) 0.4 mg DAILY ORAL 05/25/16 09:00 06/24/16 08:59 05/28/16 09:06 Vancomycin HCl 1 ea 1 ea DAILY PRN MISC Per rx protocol 05/25/16 04:00 06/24/16 03:59 Vancomycin HCl/ Dextrose (Vancomycin/D5W 250ml) 250 ml @ 166.667 mls/hr Q12H IVPB 05/25/16 10:00 05/30/16 09:59 05/28/16 09:06 Zolpidem Tartrate (Ambien) 5 mg HSPRN PRN ORAL Insomnia 05/25/16 04:00 06/24/16 03:59 FRANKO GUSMAN May 28, 2016 11:46
[2016-05-28 12:00] VITALS: BP 112/65
--- NOTE | 2016-05-28 13:13 | Nephrology Progress Note ---
Assessment/Plan Problem List: (1) Rash and other nonspecific skin eruption (2) Psychosis (3) Cellulitis (4) Venous stasis Plan continue antibiotics per ID Monitor electrolytes Monitor counts Vitals stable AM labs Subjective Constitutional: Denies: chills, diaphoresis, fever, malaise, no symptoms, other , weakness HEENT: Denies: blurred vision, double vision, ear discharge, ear pain, eye pain , mouth pain, mouth swelling, no symptoms, nose congestion, nose pain, other, tearing, throat pain, throat swelling Genitourinary: Denies: burning, discharge, flank pain, frequency, hematuria, incontinence, no symptoms, other, pain, urgency Neurologic/Psychiatric: Denies: anxiety, depressed, emotional problems, headache, no symptoms, numbness, other, paresthesia, pre-existing deficit, seizure, tingling, tremors, weakness Objective Objective Last 24 Hour Vital Signs Date Time Temp Pulse Resp B/P Pulse Ox O2 Delivery O2 Flow Rate FiO2 05/28/16 12:00 98.2 72 20 112/65 97 Room Air 05/28/16 11:51 98.2 05/28/16 08:13 98.1 75 20 109/59 95 Room Air 05/28/16 04:00 96.8 78 18 114/61 96 Room Air 05/28/16 00:00 98.2 81 18 116/66 95 Room Air 05/27/16 19:00 97.5 80 20 104/61 97 Room Air 05/27/16 16:00 98.1 82 20 117/54 99 Room Air Intake and Output 05/27/16 05/28/16 19:00 07:00 Intake Total 480 ml 490.000 ml Balance 480 ml 490.000 ml Intake Oral 480 ml 240 ml IV Total 250.000 ml # Voids 6 Height (Feet): 6 Height (Inches): 4.00 Weight (Pounds): 180 General Appearance: alert EENT: normal ENT inspection Neck: normal alignment, supple, normal inspection Cardiovascular: normal rate, regular rhythm Respiratory/Chest: normal breath sounds, no respiratory distress Abdomen: non tender, soft, no organomegaly Extremities: other - right foot cellulitis Neurologic: alert, oriented x 3, responsive, normal mood/affect Albertina Taylor N.P. May 28, 2016 13:13
--- NOTE | 2016-05-28 13:37 | General Progress Note ---
Assessment/Plan Problem List: (1) Edema of both legs ICD Codes: R60.0 - Localized edema SNOMED: 059910504 (2) Cellulitis ICD Codes: L03.90 - Cellulitis, unspecified SNOMED: 852766993 (3) Sepsis ICD Codes: A41.9 - Sepsis, unspecified organism SNOMED: 91977386 (4) Venous stasis ICD Codes: I87.8 - Other specified disorders of veins; I83.12 - Varicose veins of left lower extremity with inflammation SNOMED: 24672077 (5) Rash and other nonspecific skin eruption ICD Codes: R21 - Rash and other nonspecific skin eruption SNOMED: 899950013, 816889713 Status: progressing Assessment/Plan afebrile vitals stable no wheezing celluiitis abx per id no acute events Subjective ROS Limited/Unobtainable: Yes Constitutional: Reports: no symptoms Allergies: Coded Allergies: No Known Allergies (Unverified , 05/24/16) Objective Last 24 Hour Vital Signs Date Time Temp Pulse Resp B/P Pulse Ox O2 Delivery O2 Flow Rate FiO2 05/28/16 12:00 98.2 72 20 112/65 97 Room Air 05/28/16 11:51 98.2 05/28/16 08:13 98.1 75 20 109/59 95 Room Air 05/28/16 04:00 96.8 78 18 114/61 96 Room Air 05/28/16 00:00 98.2 81 18 116/66 95 Room Air 05/27/16 19:00 97.5 80 20 104/61 97 Room Air 05/27/16 16:00 98.1 82 20 117/54 99 Room Air Intake and Output 05/27/16 05/28/16 19:00 07:00 Intake Total 480 ml 490.000 ml Balance 480 ml 490.000 ml Intake Oral 480 ml 240 ml IV Total 250.000 ml # Voids 6 Height (Feet): 6 Height (Inches): 4.00 Weight (Pounds): 180 EENT: PERRL/EOMI Neck: supple Cardiovascular: normal rate Respiratory/Chest: lungs clear Abdomen: soft Kevan Gamboa MD May 28, 2016 13:37
--- NOTE | 2016-05-28 15:08 | Infectious Diseases Prog Note ---
Assessment/Plan Problems: (1) Sepsis Assessment & Plan: with coag negative staph, most likely source is his skin, echocardiogram showed vegetations on the aortic valve, suggestive of endocarditis. will continue vancomycin for 6 weeks for endocarditis , will repeat blood culture to confirm clearance (2) Edema of both legs Assessment & Plan: recommend diuresis, and doppler to rule out DVT (3) Cellulitis of leg Assessment & Plan: continue vancomycin. monitor Sed rate and CRP (4) Venous stasis Assessment & Plan: recommend venous doplar to rule out dvt. keep leg elevated in bed Subjective Skin: Reports: other - redness on the legs and feet. Allergies: Coded Allergies: No Known Allergies (Unverified , 05/24/16) All Systems: reviewed and negative except above Subjective feels better, resting in bed comfortable, not in distress, afebrile. Objective Vital Signs Last 24 Hour Vital Signs Date Time Temp Pulse Resp B/P Pulse Ox O2 Delivery O2 Flow Rate FiO2 05/28/16 12:00 98.2 72 20 112/65 97 Room Air 05/28/16 11:51 98.2 05/28/16 08:13 98.1 75 20 109/59 95 Room Air 05/28/16 04:00 96.8 78 18 114/61 96 Room Air 05/28/16 00:00 98.2 81 18 116/66 95 Room Air 05/27/16 19:00 97.5 80 20 104/61 97 Room Air 05/27/16 16:00 98.1 82 20 117/54 99 Room Air Height (Feet): 6 Height (Inches): 4.00 Weight (Pounds): 180 General Appearance: WD/WN, no acute distress HEENT: normocephalic, atraumatic, anicteric, mucous membranes moist Respiratory/Chest: chest wall non-tender, lungs clear, normal breath sounds, no respiratory distress, no accessory muscle use Cardiovascular: normal peripheral pulses, normal rate, regular rhythm, no gallop/murmur Abdomen: normal bowel sounds, soft, non tender, no organomegaly, non distended , no mass Extremities: no cyanosis, no clubbing Skin: no rash, no lesions, other - red, and warm on the legs Current Medications Medications (Trade) Dose Ordered Sig/Janay Route PRN Reason Start Time Stop Time Status Last Admin Dose Admin Acetaminophen (Tylenol) 650 mg Q4H PRN ORAL fever 05/25/16 04:00 06/24/16 03:59 05/25/16 15:38 Al Hydroxide/Mg Hydroxide (Mylanta II) 30 ml Q6H PRN ORAL dyspepsia 05/25/16 04:00 06/24/16 03:59 Benztropine Mesylate (Cogentin) 1 mg BID ORAL 05/25/16 18:00 06/24/16 17:59 05/28/16 09:06 Dextrose (Dextrose 50%) STAT PRN IV Hypoglycemia 05/25/16 04:00 06/24/16 03:59 Divalproex Sodium (Depakote) 500 mg DAILY ORAL 05/26/16 09:00 06/25/16 08:59 05/28/16 09:06 Divalproex Sodium (Depakote) 1,000 mg BEDTIME ORAL 05/25/16 21:00 06/24/16 20:59 05/27/16 22:02 Finasteride (Proscar) 5 mg DAILY ORAL 05/25/16 09:00 06/24/16 08:59 05/28/16 09:06 Fluphenazine HCl (Prolixin) 10 mg BID ORAL 05/28/16 18:00 06/27/16 17:59 Heparin Sodium (Porcine) (Heparin 5000 units/ml) 5,000 units EVERY 12 HOURS SUBQ 05/25/16 09:00 06/24/16 08:59 05/28/16 09:13 Lorazepam (Ativan 2mg/ml 1ml) 0.5 mg Q4H PRN IV For Anxiety 05/25/16 04:00 06/01/16 03:59 Mirtazapine (Remeron) 15 mg BEDTIME ORAL 05/25/16 21:00 06/24/16 20:59 05/27/16 22:01 Morphine Sulfate (Morphine Sulfate) 1 mg Q4H PRN IVP For Pain 05/25/16 04:00 06/01/16 03:59 05/28/16 11:21 Olanzapine (ZyPREXA) 10 mg BEDTIME ORAL 05/25/16 21:00 06/24/16 20:59 05/27/16 22:02 Ondansetron HCl (Zofran) 4 mg Q6H PRN IVP Nausea & Vomiting 05/25/16 04:00 06/24/16 03:59 Polyethylene Glycol (Miralax) 17 gm HSPRN PRN ORAL Constipation 05/25/16 04:00 06/24/16 03:59 Tamsulosin HCl (Flomax) 0.4 mg DAILY ORAL 05/25/16 09:00 06/24/16 08:59 05/28/16 09:06 Vancomycin HCl 1 ea 1 ea DAILY PRN MISC Per rx protocol 05/25/16 04:00 06/24/16 03:59 Vancomycin HCl/ Dextrose (Vancomycin/D5W 250ml) 250 ml @ 166.667 mls/hr Q12H IVPB 05/25/16 10:00 05/30/16 09:59 05/28/16 09:06 Zolpidem Tartrate (Ambien) 5 mg HSPRN PRN ORAL Insomnia 05/25/16 04:00 06/24/16 03:59 Kathryn Cheung M.D. May 28, 2016 15:08
[2016-05-28 16:33] VITALS: BP 122/67
[2016-05-28 20:00] VITALS: BP 123/69
[2016-05-29] VITALS: BP_SYST 121; BP_DIAS 64; BP_DIAS 82
[2016-05-29 04:00] VITALS: BP 110/62
--- NOTE | 2016-05-29 06:38 | Consultation ---
DATE OF CONSULTATION: 05/26/2016 CARDIOLOGY CONSULTATION: CONSULTING PHYSICIAN: Sachin Castillo M.D. REFERRING PHYSICIAN: Santhosh Dias D.O. REASON FOR CONSULTATION: Management of tachycardia and possible heart failure. HISTORY OF PRESENT ILLNESS: The patient is a very unfortunate 55-year-old gentleman, who is a resident of a nursing facility and was admitted to the emergency department, was admitted to this hospital for evaluation and management of lower extremity edema and possible cellulitis of both legs and questionable heart failure. The patient is seen in Cardiology consultation at the request of Dr. Dias, as his heart rate was consistent with tachycardia and also management of possible heart failure. At the time of my arrival to the hospital, he did not have any chest pain or shortness of breath. He was complaining mainly lower extremity edema pain. Blood pressure was 144/88 mmHg and heart rate of 111. He denies any prior history of coronary artery disease and congestive heart failure. PAST MEDICAL HISTORY: Includes schizophrenia. HOME MEDICATIONS: Benztropine 1 mg p.o. twice daily, chlorhexidine 20 mg p.o. daily, Depakote 500 mg p.o. daily and also 1000 mg at nighttime, Colace 100 mg p.o. twice daily, iron sulfate 325 mg p.o. daily, finasteride 5 mg p.o. daily as well as loratadine 10 mg daily, and Zyprexa 10 mg by mouth daily. SOCIAL HISTORY: Nonsmoker. Denies any prior history. Denies any current use of tobacco, alcohol, or illicit drug use. He is a resident of a nursing facility under the care of Dr. Santhosh Dias. FAMILY HISTORY: No premature coronary artery disease in the first-degree relatives. REVIEW OF SYSTEMS: HEENT: Denies any headache, diplopia, or blurred vision. Constitutional: Denies any fever, chills, night sweats, or weight loss. Cardiovascular: Denies any chest pain, shortness of breath, PND, or orthopnea. Complaining of bilateral lower extremity edema. Denies any palpitation or syncope. Pulmonary: Denies any cough or hemoptysis. Gastrointestinal: Denies any nausea, vomiting, diarrhea, constipation, abdominal pain, or GI bleed. Genitourinary: Denies any hematuria, dysuria, or incontinence. Neurology: Denies any motor dysfunction, sensory deficit, or altered speech. Musculoskeletal: He is complaining faint lower extremity swelling and possible infection. PHYSICAL EXAMINATION: VITAL SIGNS: Blood pressure at the time of arrival to the hospital was 144/68, respiration of 18, pulse , O2 saturations 100% on room air, temperature degrees Fahrenheit. GENERAL: The patient is a very unfortunate 55-year-old gentleman who was seen in Cardiology consultation in no apparent respiratory distress, alert, and oriented x4. HEENT: Atraumatic and normocephalic. Anicteric. Pupils are equal, round, and reactive to light and accommodation. Extraocular muscles are intact. NECK: JVP less than 5 cm. No carotid bruit. Carotid upstrokes 2+ bilaterally. CARDIOVASCULAR: Normal S1 and S2. Regular rate and rhythm. No murmurs, gallops, or rubs. PMI is at fourth intercostal space in the midclavicular line. LUNGS: Clear to auscultation bilaterally. ABDOMEN: Soft, nontender, and nondistended. No hepatosplenomegaly. Positive bowel sounds. EXTREMITIES: No evidence of edema or clubbing. There is 2+ bilateral lower extremity edema pitting with associated redness, warmth, and tenderness. A 12-lead electrocardiogram sinus tachycardia at the rate of 105, otherwise normal esophagogastroduodenoscopy. Chest x-ray shows no acute cardiopulmonary event with normal pulmonary vascularity and normal cardiac silhouette. LABORATORY FINDINGS: WBC was 5.6, hemoglobin 10.3, hematocrit 31.1, and platelet count 210,000. Sodium was 133, potassium 3.8, BUN 95, bicarbonate 23, BUN of 15, creatinine 1.0. BNP was 216. Troponin I was less than 0.3. C-reactive protein is 4.3. Triglyceride 57, and LDL was 70, HDL was 28. TSH was 2.180. Total cholesterol 109. ASSESSMENT AND PLAN: 1. The patient is a very unfortunate 55-year-old gentleman, seen in Cardiology consultation at the request of Dr. Dias. 2. Sinus tachycardia is likely the reason for his tachyarrhythmias. I suspect infection of this patient. The patient has lower extremity edema and cellulitis may explain the patient's infection. White count is within normal limits. We will continue with recommendations from Infectious Disease. I do not see any heart failure physical examination. I would like to monitored the patient while in the hospital may consider a 2D echocardiography. 3. Cellulitis of the legs. The patient is on vancomycin and cefepime per Infectious Disease recommendation. 4. Possible venous stasis and chronic stasis dermatitis. Lower extremity ultrasound has been ordered. 5. Of note slight elevation of BNP may not verified congestive heart failure in this patient who was clinically not appeared to be in heart failure. I would like to thank, Dr. Dias for allowing me to participate in the care of this patient. Sachin Castillo M.D. DR: FELICE JOB#: [id number] CC:
[2016-05-29 07:36] VITALS: BP 99/56
[2016-05-29] MEDS: Benztropine 1mg tab ORAL SCH ×2 (09:57→18:08)
[2016-05-29] MEDS: Depakote 500mg tab ORAL SCH ×2 (09:58→21:31)
[2016-05-29] MEDS: Tamsulosin 0.4mg cap ORAL SCH (09:58)
[2016-05-29] MEDS: Vancomycin 1250mg/D5W 250ml IVPB SCH ×4 (09:58→21:34)
[2016-05-29] MEDS: Heparin 5000 units/ml inj SUBQ SCH ×2 (09:59→21:34)
--- NOTE | 2016-05-29 09:59 | Nephrology Progress Note ---
Assessment/Plan Problem List: (1) Rash and other nonspecific skin eruption (2) Psychosis (3) Cellulitis (4) Venous stasis Plan continue antibiotics per ID Monitor electrolytes Monitor counts DVT prophylaxis Continue antipsychotic med Vitals stable AM labs Subjective Subjective In bed asleep, no distress noted. Objective Objective Last 24 Hour Vital Signs Date Time Temp Pulse Resp B/P Pulse Ox O2 Delivery O2 Flow Rate FiO2 05/29/16 07:36 97.9 91 16 99/56 98 Room Air 05/29/16 04:00 98.1 85 20 110/62 94 Room Air 05/29/16 00:00 97.9 83 18 121/64 96 Room Air 05/28/16 20:00 97.3 93 18 123/69 99 Room Air 05/28/16 16:33 97.7 76 15 122/67 98 Room Air 05/28/16 12:00 98.2 72 20 112/65 97 Room Air 05/28/16 11:51 98.2 Intake and Output 05/28/16 05/29/16 19:00 07:00 Intake Total 880 ml 1030 ml Output Total 600 ml Balance 280 ml 1030 ml Intake Oral 880 ml 1030 ml Output Urine Total 600 ml # Voids 3 5 Height (Feet): 6 Height (Inches): 4.00 Weight (Pounds): 180 General Appearance: no apparent distress, alert EENT: normal ENT inspection Neck: normal alignment, supple Cardiovascular: normal rate, regular rhythm Respiratory/Chest: normal breath sounds, no respiratory distress Abdomen: non tender, soft, no organomegaly Extremities: non-tender, normal inspection, no calf tenderness, other - right foot ulcer Neurologic: alert, oriented x 3, responsive, normal mood/affect Albertina Taylor N.P. May 29, 2016 09:59
[2016-05-29] MEDS: Morphine Sulfate 2mg/ml Inj IVP PRN ×3 (11:18→23:55)
[2016-05-29 12:00] VITALS: BP 101/58
--- NOTE | 2016-05-29 13:22 | General Progress Note ---
Assessment/Plan Problem List: (1) Edema of both legs ICD Codes: R60.0 - Localized edema SNOMED: 550980455 (2) Cellulitis ICD Codes: L03.90 - Cellulitis, unspecified SNOMED: 477784584 (3) Sepsis ICD Codes: A41.9 - Sepsis, unspecified organism SNOMED: 12653410 (4) Venous stasis ICD Codes: I87.8 - Other specified disorders of veins; I83.12 - Varicose veins of left lower extremity with inflammation SNOMED: 72398065 (5) Rash and other nonspecific skin eruption ICD Codes: R21 - Rash and other nonspecific skin eruption SNOMED: 071295660, 242976044 Status: progressing Assessment/Plan celluitis sepsis abx per id afebrile vitals stable Subjective ROS Limited/Unobtainable: Yes Constitutional: Reports: no symptoms Allergies: Coded Allergies: No Known Allergies (Unverified , 05/24/16) Objective Last 24 Hour Vital Signs Date Time Temp Pulse Resp B/P Pulse Ox O2 Delivery O2 Flow Rate FiO2 05/29/16 12:00 97.5 87 18 101/58 96 Room Air 05/29/16 11:48 97.9 05/29/16 07:36 97.9 91 16 99/56 98 Room Air 05/29/16 04:00 98.1 85 20 110/62 94 Room Air 05/29/16 00:00 97.9 83 18 121/64 96 Room Air 05/28/16 20:00 97.3 93 18 123/69 99 Room Air 05/28/16 16:33 97.7 76 15 122/67 98 Room Air Intake and Output 05/28/16 05/29/16 19:00 07:00 Intake Total 880 ml 1030 ml Output Total 600 ml Balance 280 ml 1030 ml Intake Oral 880 ml 1030 ml Output Urine Total 600 ml # Voids 3 5 Height (Feet): 6 Height (Inches): 4.00 Weight (Pounds): 180 EENT: PERRL/EOMI Neck: supple Cardiovascular: normal rate Respiratory/Chest: lungs clear Abdomen: soft Kevan Gamboa MD May 29, 2016 13:22
--- NOTE | 2016-05-29 16:01 | Infectious Diseases Prog Note ---
Assessment/Plan Problems: (1) Sepsis Assessment & Plan: with coag negative staph, most likely source is his skin, echocardiogram showed vegetations on the aortic valve, suggestive of endocarditis. will continue vancomycin for 6 weeks for endocarditis , repeated blood culture is negative (2) Edema of both legs Assessment & Plan: recommend diuresis, and doppler to rule out DVT (3) Cellulitis of leg Assessment & Plan: continue vancomycin. monitor Sed rate and CRP (4) Venous stasis Assessment & Plan: recommend venous doplar to rule out dvt. keep leg elevated in bed Subjective Constitutional: Reports: no symptoms HEENT: Reports: no symptoms Respiratory: Reports: no symptoms Cardiovascular: Reports: no symptoms Gastrointestinal/Abdominal: Reports: no symptoms Genitourinary: Reports: no symptoms Neurologic: Reports: no symptoms Psychiatric: Reports: no symptoms Skin: Reports: other - redness Endocrine: Reports: no symptoms Allergies: Coded Allergies: No Known Allergies (Unverified , 05/24/16) Subjective feels better, resting in bed comfortable, not in distress, afebrile. Objective Vital Signs Last 24 Hour Vital Signs Date Time Temp Pulse Resp B/P Pulse Ox O2 Delivery O2 Flow Rate FiO2 05/29/16 12:00 97.5 87 18 101/58 96 Room Air 05/29/16 11:48 97.9 05/29/16 07:36 97.9 91 16 99/56 98 Room Air 05/29/16 04:00 98.1 85 20 110/62 94 Room Air 05/29/16 00:00 97.9 83 18 121/64 96 Room Air 05/28/16 20:00 97.3 93 18 123/69 99 Room Air 05/28/16 16:33 97.7 76 15 122/67 98 Room Air Height (Feet): 6 Height (Inches): 4.00 Weight (Pounds): 180 General Appearance: WD/WN, no acute distress HEENT: normocephalic, atraumatic, anicteric, mucous membranes moist Respiratory/Chest: chest wall non-tender, lungs clear, normal breath sounds, no respiratory distress, no accessory muscle use Cardiovascular: normal peripheral pulses, normal rate, regular rhythm, no gallop/murmur, no JVD Abdomen: normal bowel sounds, soft, non tender, no organomegaly, non distended , no mass, no scars Extremities: no cyanosis, no clubbing, other - redness on both legs Skin: no rash, no lesions, no ulcers Microbiology Date/Time Source Procedure Growth Status 05/27/16 15:10 Blood Blood Culture - Preliminary NO GROWTH AFTER 24 HOURS Resulted 05/27/16 15:00 Blood Blood Culture - Preliminary NO GROWTH AFTER 24 HOURS Resulted Current Medications Medications (Trade) Dose Ordered Sig/Janay Route PRN Reason Start Time Stop Time Status Last Admin Dose Admin Acetaminophen (Tylenol) 650 mg Q4H PRN ORAL fever 05/25/16 04:00 06/24/16 03:59 05/25/16 15:38 Al Hydroxide/Mg Hydroxide (Mylanta II) 30 ml Q6H PRN ORAL dyspepsia 05/25/16 04:00 06/24/16 03:59 Benztropine Mesylate (Cogentin) 1 mg BID ORAL 05/25/16 18:00 06/24/16 17:59 05/29/16 09:57 Dextrose (Dextrose 50%) STAT PRN IV Hypoglycemia 05/25/16 04:00 06/24/16 03:59 Divalproex Sodium (Depakote) 500 mg DAILY ORAL 05/26/16 09:00 06/25/16 08:59 05/29/16 09:58 Divalproex Sodium (Depakote) 1,000 mg BEDTIME ORAL 05/25/16 21:00 06/24/16 20:59 05/28/16 21:14 Finasteride (Proscar) 5 mg DAILY ORAL 05/25/16 09:00 06/24/16 08:59 05/29/16 09:57 Fluphenazine HCl (Prolixin) 10 mg BID ORAL 05/28/16 18:00 06/27/16 17:59 05/29/16 09:58 Heparin Sodium (Porcine) (Heparin 5000 units/ml) 5,000 units EVERY 12 HOURS SUBQ 05/25/16 09:00 06/24/16 08:59 05/29/16 09:59 Lorazepam (Ativan 2mg/ml 1ml) 0.5 mg Q4H PRN IV For Anxiety 05/25/16 04:00 06/01/16 03:59 Mirtazapine (Remeron) 15 mg BEDTIME ORAL 05/25/16 21:00 06/24/16 20:59 05/28/16 21:14 Morphine Sulfate (Morphine Sulfate) 1 mg Q4H PRN IVP For Pain 05/25/16 04:00 06/01/16 03:59 05/29/16 11:18 Olanzapine (ZyPREXA) 10 mg BEDTIME ORAL 05/25/16 21:00 06/24/16 20:59 05/28/16 21:13 Ondansetron HCl (Zofran) 4 mg Q6H PRN IVP Nausea & Vomiting 05/25/16 04:00 06/24/16 03:59 Polyethylene Glycol (Miralax) 17 gm HSPRN PRN ORAL Constipation 05/25/16 04:00 06/24/16 03:59 Tamsulosin HCl (Flomax) 0.4 mg DAILY ORAL 05/25/16 09:00 06/24/16 08:59 05/29/16 09:58 Vancomycin HCl 1 ea 1 ea DAILY PRN MISC Per rx protocol 05/25/16 04:00 06/24/16 03:59 Vancomycin HCl/ Dextrose (Vancomycin/D5W 250ml) 250 ml @ 166.667 mls/hr Q12H IVPB 05/25/16 10:00 05/30/16 09:59 05/29/16 09:58 Zolpidem Tartrate (Ambien) 5 mg HSPRN PRN ORAL Insomnia 05/25/16 04:00 06/24/16 03:59 Kathryn Cheung M.D. May 29, 2016 16:01
[2016-05-29 16:41] VITALS: BP 133/79
--- NOTE | 2016-05-29 19:02 | Pulmonology Progress Note ---
Assessment/Plan Problems: (1) Bacteremia (2) Cellulitis (3) Edema of both legs (4) Venous stasis dermatitis of both lower extremities (5) Psychosis Assessment/Plan continue antibiotics check sensitivity of Gram positive check electrolytes check wbc improving Subjective ROS Limited/Unobtainable: No Constitutional: Reports: anorexia, fatigue Hematologic: Reports: bruising Musculoskeletal: Reports: pain, swelling Allergies: Coded Allergies: No Known Allergies (Unverified , 05/24/16) Objective Last 24 Hour Vital Signs Date Time Temp Pulse Resp B/P Pulse Ox O2 Delivery O2 Flow Rate FiO2 05/29/16 18:38 97.7 05/29/16 16:41 97.7 94 15 133/79 98 Room Air 05/29/16 12:00 97.5 87 18 101/58 96 Room Air 05/29/16 07:36 97.9 91 16 99/56 98 Room Air 05/29/16 04:00 98.1 85 20 110/62 94 Room Air 05/29/16 00:00 97.9 83 18 121/64 96 Room Air 05/28/16 20:00 97.3 93 18 123/69 99 Room Air Intake and Output 05/28/16 05/29/16 19:00 07:00 Intake Total 880 ml 1030 ml Output Total 600 ml Balance 280 ml 1030 ml Intake Oral 880 ml 1030 ml Output Urine Total 600 ml # Voids 3 5 General Appearance: no acute distress HEENT: normocephalic, atraumatic, PERRL Respiratory/Chest: chest wall non-tender, decreased breath sounds, accessory muscle use Cardiovascular: normal peripheral pulses, normal rate, regular rhythm, no JVD Abdomen: normal bowel sounds, soft, non tender, no organomegaly Genitourinary: normal external genitalia Extremities: no cyanosis Skin: rash, lesions, ulcers 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, no motor/sensory deficits Microbiology Date/Time Source Procedure Growth Status 05/27/16 15:10 Blood Blood Culture - Preliminary NO GROWTH AFTER 24 HOURS Resulted 05/27/16 15:00 Blood Blood Culture - Preliminary NO GROWTH AFTER 24 HOURS Resulted Current Medications Medications (Trade) Dose Ordered Sig/Jaany Route PRN Reason Start Time Stop Time Status Last Admin Dose Admin Acetaminophen (Tylenol) 650 mg Q4H PRN ORAL fever 05/25/16 04:00 06/24/16 03:59 05/25/16 15:38 Al Hydroxide/Mg Hydroxide (Mylanta II) 30 ml Q6H PRN ORAL dyspepsia 05/25/16 04:00 06/24/16 03:59 Benztropine Mesylate (Cogentin) 1 mg BID ORAL 05/25/16 18:00 06/24/16 17:59 05/29/16 18:08 Dextrose (Dextrose 50%) STAT PRN IV Hypoglycemia 05/25/16 04:00 06/24/16 03:59 Divalproex Sodium (Depakote) 500 mg DAILY ORAL 05/26/16 09:00 06/25/16 08:59 05/29/16 09:58 Divalproex Sodium (Depakote) 1,000 mg BEDTIME ORAL 05/25/16 21:00 06/24/16 20:59 05/28/16 21:14 Finasteride (Proscar) 5 mg DAILY ORAL 05/25/16 09:00 06/24/16 08:59 05/29/16 09:57 Fluphenazine HCl (Prolixin) 10 mg BID ORAL 05/28/16 18:00 06/27/16 17:59 05/29/16 18:08 Heparin Sodium (Porcine) (Heparin 5000 units/ml) 5,000 units EVERY 12 HOURS SUBQ 05/25/16 09:00 06/24/16 08:59 05/29/16 09:59 Lorazepam (Ativan 2mg/ml 1ml) 0.5 mg Q4H PRN IV For Anxiety 05/25/16 04:00 06/01/16 03:59 Mirtazapine (Remeron) 15 mg BEDTIME ORAL 05/25/16 21:00 06/24/16 20:59 05/28/16 21:14 Morphine Sulfate (Morphine Sulfate) 1 mg Q4H PRN IVP For Pain 05/25/16 04:00 06/01/16 03:59 05/29/16 18:08 Olanzapine (ZyPREXA) 10 mg BEDTIME ORAL 05/25/16 21:00 06/24/16 20:59 05/28/16 21:13 Ondansetron HCl (Zofran) 4 mg Q6H PRN IVP Nausea & Vomiting 05/25/16 04:00 06/24/16 03:59 Polyethylene Glycol (Miralax) 17 gm HSPRN PRN ORAL Constipation 05/25/16 04:00 06/24/16 03:59 Tamsulosin HCl (Flomax) 0.4 mg DAILY ORAL 05/25/16 09:00 06/24/16 08:59 05/29/16 09:58 Vancomycin HCl 1 ea 1 ea DAILY PRN MISC Per rx protocol 05/25/16 04:00 06/24/16 03:59 Vancomycin HCl/ Dextrose (Vancomycin/D5W 250ml) 250 ml @ 166.667 mls/hr Q12H IVPB 05/25/16 10:00 05/30/16 09:59 05/29/16 09:58 Zolpidem Tartrate (Ambien) 5 mg HSPRN PRN ORAL Insomnia 05/25/16 04:00 06/24/16 03:59 FRANKO GUSMAN May 29, 2016 19:02
[2016-05-29 20:00] VITALS: BP 110/61
--- NOTE | 2016-05-29 22:08 | Progress Note ---
DATE: 05/28/2016 CARDIOLOGY PROGRESS NOTE Coverage for Dr. Castillo. SUBJECTIVE: The patient is on antibiotics. Gram-positive cocci noted in blood cultures. OBJECTIVE: VITAL SIGNS: Blood pressure 109/59, pulse 75, and respirations 20. NECK: Supple. LUNGS: Clear. CARDIAC: Regular rhythm and rate. Normal S1, S2. No audible murmur. ABDOMEN: Soft. EXTREMITIES: Lower extremities with erythema. IMPRESSION: 1. Cellulitis. 2. Bacteremia. 3. Elevated CRP. 4. Increased risk for endocarditis. PLAN: 1. Check echocardiogram. 2. Await final cultures. 3. Antibiotics per Infectious Disease configuration management consultant. Navin Bautista M.D. DR: NANCY JOB#: [id number] CC:
[2016-05-30] VITALS: BP 101/64
[2016-05-30 04:00] VITALS: BP 112/68
[2016-05-30] MEDS: Morphine Sulfate 2mg/ml Inj IVP PRN ×2 (04:13→08:57)
--- NOTE | 2016-05-30 06:58 | Progress Note ---
DATE: 05/29/2016 CARDIOLOGY PROGRESS NOTE SUBJECTIVE: The patient has not had any new complaints. He continues with antibiotics. Monitored rhythm, sinus. OBJECTIVE: VITAL SIGNS: Blood pressure 101/58, heart rate 87, respiratory rate 18, and afebrile. LUNGS: Bilateral breath sounds. HEART: Regular rhythm rate. Normal S1 and S2. ABDOMEN: Soft. EXTREMITIES: With erythematous changes and trace edema. LABORATORY DATA: Blood culture, coag-negative staph. Repeated cultures negative. No new laboratory studies. IMPRESSION: 1. Cellulitis. 2. Venous insufficiency. 3. Stasis dermatitis. 4. Secondary sinus tachycardia. 5. Hypovolemia and dehydration, corrected. 6. Increased risk for endocarditis in the setting of true bacteremia. PLAN: 1. Continue antibiotics. 2. Skin care. 3. DVT prophylaxis. 4. Review echocardiogram. Navin Bautista M.D. DR: SUJATA JOB#: [id number] CC:
[2016-05-30 07:12] LABS: ANION GAP 14 (5-15); CALCIUM 8.7 mg/dL (8.6-10.2); CARBON DIOXIDE 22 mEQ/L (20-30); CHLORIDE 102 mEQ/L (98-107); CREATININE 0.9 mg/dL (0.7-1.2); GLOMERULAR FILTRATION RATE > 60 mL/min (>60); HEMOLYSIS 13; POTASSIUM 3.8 mEQ/L (3.4-4.9); SODIUM 138 mEQ/L (135-145)
[2016-05-30 07:43] LABS: BASOPHILS % (AUTO) 1.3 % (0.0-2.0); EOSINOPHILS % (AUTO) 6.7 % (0.0-3.0); LYMPHOCYTES % (AUTO) 39.1 % (20.0-45.0); MEAN CORPUSCULAR HGB CONC 34.6 G/DL (32.0-36.0); MEAN CORPUSCULAR VOLUME 92 FL (80-99); MEAN PLATELET VOLUME 6.1 FL (6.5-10.1); MONOCYTES % (AUTO) 15.3 % (1.0-10.0); NEUTROPHILS % (AUTO) 37.7 % (45.0-75.0); PLATELET COUNT 207 K/UL (150-450); RED BLOOD COUNT 3.53 M/UL (4.70-6.10); RED CELL DISTRIBUTION WIDTH 13.3 % (11.6-14.8); WHITE BLOOD COUNT 4.6 K/UL (4.8-10.8)
[2016-05-30 07:58] VITALS: BP 135/66
[2016-05-30] MEDS: Benztropine 1mg tab ORAL SCH (08:57)
[2016-05-30] MEDS: Tamsulosin 0.4mg cap ORAL SCH (08:57)
[2016-05-30] MEDS: Depakote 500mg tab ORAL SCH (08:57)
[2016-05-30] MEDS: Heparin 5000 units/ml inj SUBQ SCH (09:00)
--- NOTE | 2016-05-30 09:20 | Cardiology Report ---
APPROVED REPORT EXAM: Two-dimensional and M-mode echocardiogram with Doppler and color Doppler. INDICATION Endocarditis M-Mode DIMENSIONS IVSd0.9 (0.7-1.1cm)Left Atrium (MM)3.1 (1.6-4.0cm) LVDd5.5 (3.5-5.6cm)Aortic Root3.7 (2.0-3.7cm) PWd1.0 (0.7-1.1cm)Aortic Cusp Exc.1.8 (1.5-2.0cm) LVDs3.9 (2.5-4.0cm) PWs0.8 cm Normal left ventricular chamber size, systolic function and wall motion. Left ventricular ejection fraction estimated to be 55-60 %. No evidence of left ventricular hypertrophy. No evidence of pericardial fat or effusion. All other cardiac chamber sizes are within normal limits. Focal aortic valve sclerosis with adequate cusp excursion Thickened mitral valve leaflets with normal excursion. Mild mitral annulus and aortic root calcification. Pulmonic valve not well visualized. Normal tricuspid valve structure. IVC is normal in size with physiologic collapse. Large echo density seen on right coronary cusp (vegitation). Consider JAVIER if clinically indicated. A color flow and spectral Doppler study was performed and revealed: No aortic regurgitation. No mitral regurgitation. Left ventricular diastolic dysfunction grade 1. No tricuspid regurgitation.
[2016-05-30] MEDS ORDERED: TYLENOL650 MG/20. ORAL (10:30)
[2016-05-30] MEDS ORDERED: MYLANTA30 M1 ORAL (10:31)
[2016-05-30] MEDS ORDERED: DEPAKOTE500 MG PO ×2 (10:34)
[2016-05-30] MEDS ORDERED: PROSCAR5 MG ORAL (10:35)
[2016-05-30] MEDS ORDERED: HEPARIN SO5000 UNIT2 SUBQ (10:36)
[2016-05-30] MEDS ORDERED: LORAZEPAM2 MG/1 M3 IV (10:37)
[2016-05-30] MEDS ORDERED: LORAZEPAM4 MG/1 M1 IV (10:37)
[2016-05-30] MEDS ORDERED: MORPHINE 22 MG/1 ML IV (10:38)
[2016-05-30] MEDS ORDERED: ZYPREXA10 MG ORAL (10:38)
[2016-05-30] MEDS ORDERED: ZOFRAN2 MG/1 M1 IV (10:39)
[2016-05-30] MEDS ORDERED: ZOLPIDEM TARTRAT5 MG ORAL (10:40)
[2016-05-30] MEDS ORDERED: MIRALAX17 GM ORAL (10:40)
[2016-05-30] MEDS ORDERED: VANCOMYCIN1 GM/2502 IVPB (10:44)
--- NOTE | 2016-05-30 11:43 | General Progress Note ---
Assessment/Plan Problem List: (1) Edema of both legs ICD Codes: R60.0 - Localized edema SNOMED: 655610471 (2) Cellulitis ICD Codes: L03.90 - Cellulitis, unspecified SNOMED: 673401236 (3) Sepsis ICD Codes: A41.9 - Sepsis, unspecified organism SNOMED: 25348918 (4) Venous stasis ICD Codes: I87.8 - Other specified disorders of veins; I83.12 - Varicose veins of left lower extremity with inflammation SNOMED: 12448360 (5) Rash and other nonspecific skin eruption ICD Codes: R21 - Rash and other nonspecific skin eruption SNOMED: 263236234, 881796840 Status: progressing Status Narrative afebrile vitals stable cellulitis lower extremity no acute events vitals stable Assessment/Plan celluitis sepsis abx per id afebrile vitals stable Subjective ROS Limited/Unobtainable: Yes Constitutional: Reports: no symptoms Allergies: Coded Allergies: No Known Allergies (Unverified , 05/24/16) Objective Last 24 Hour Vital Signs Date Time Temp Pulse Resp B/P Pulse Ox O2 Delivery O2 Flow Rate FiO2 05/30/16 07:58 98.1 69 21 135/66 95 Room Air 05/30/16 04:00 98.1 79 18 112/68 94 Room Air 05/30/16 00:00 98.6 85 18 101/64 95 Room Air 05/29/16 20:00 97.7 89 18 110/61 97 Room Air 05/29/16 18:38 97.7 05/29/16 16:41 97.7 94 15 133/79 98 Room Air 05/29/16 12:00 97.5 87 18 101/58 96 Room Air Intake and Output 05/29/16 05/30/16 19:00 07:00 Intake Total 1330 ml 260 ml Output Total 1200 ml 675 ml Balance 130 ml -415 ml Intake Oral 600 ml 260 ml IV Total 250 ml Other 480 ml Output Urine Total 1200 ml 675 ml # Voids 1 # Bowel Movements 1 Laboratory Tests 05/30/16 05:10: White Blood Count 4.6L, Red Blood Count 3.53L, Hemoglobin 11.3L, Hematocrit 32.6L, Mean Corpuscular Volume 92, Mean Corpuscular Hemoglobin 32.0H, Mean Corpuscular Hemoglobin Concent 34.6, Red Cell Distribution Width 13.3, Platelet Count 207, Mean Platelet Volume 6.1L, Neutrophils (%) (Auto) 37.7L, Lymphocytes (%) (Auto) 39.1, Monocytes (%) (Auto) 15.3H, Eosinophils (%) (Auto) 6.7H, Basophils (%) (Auto) 1.3 05/30/16 05:15: Sodium Level 138, Potassium Level 3.8, Chloride Level 102, Carbon Dioxide Level 22, Anion Gap 14, Blood Urea Nitrogen 17, Creatinine 0.9, Estimat Glomerular Filtration Rate > 60, Glucose Level 106, Calcium Level 8.7 Height (Feet): 6 Height (Inches): 4.00 Weight (Pounds): 180 EENT: PERRL/EOMI Neck: supple Cardiovascular: normal rate Respiratory/Chest: lungs clear Abdomen: soft Kevan Gamboa MD May 30, 2016 11:43
[2016-05-30 11:46] VITALS: BP 102/47
[2016-05-30] MEDS ORDERED: Tubing IV Secondary IV ONE (11:49)
--- NOTE | 2016-05-30 15:48 | Progress Note ---
DATE: 05/30/2016 PSYCHOTHERAPY CONSULTATION PROGRESS NOTE CONSULTING PHYSICIAN: Margret Casey M.D. TREATING ATTENDING: Santhosh Dias D.O. HISTORY OF PRESENT ILLNESS: The patient is a 55-year-old male, disorganized and confused. He is alert and oriented x2, anxious, irritable, agitated, and altered mental status requiring continuous hospitalization for stabilization of symptoms. This clinician assessed this patient and provided the patient with supportive psychotherapy, reality orientation, and coping skills. Encouraging the patient to participate in his treatment as well as continuation with medication management and behavioral management. Margret Casey PsyD. DR: Kiley JOB#: [id number] CC:
--- NOTE | 2016-05-30 16:24 | Infectious Diseases Prog Note ---
Assessment/Plan Problems: (1) Sepsis Assessment & Plan: with coag negative staph, most likely source is his skin, echocardiogram showed vegetations on the aortic valve, suggestive of endocarditis. will continue vancomycin for 6 weeks for endocarditis , repeated blood culture is negative on 05/27/16. EOT 07/08/16 (2) Edema of both legs Assessment & Plan: recommend diuresis, and daily weight monitor. (3) Cellulitis of leg Assessment & Plan: continue vancomycin. monitor Sed rate and CRP (4) Venous stasis Assessment & Plan: recommend venous doplar to rule out dvt. keep leg elevated in bed Subjective Neurologic: Reports: weakness Allergies: Coded Allergies: No Known Allergies (Unverified , 05/24/16) All Systems: reviewed and negative except above Subjective feels better, resting in bed comfortable, not in distress, afebrile. Objective Vital Signs Last 24 Hour Vital Signs Date Time Temp Pulse Resp B/P Pulse Ox O2 Delivery O2 Flow Rate FiO2 05/30/16 11:46 98.3 94 21 102/47 95 Room Air 05/30/16 09:27 98.3 05/30/16 07:58 98.1 69 21 135/66 95 Room Air 05/30/16 04:00 98.1 79 18 112/68 94 Room Air 05/30/16 00:00 98.6 85 18 101/64 95 Room Air 05/29/16 20:00 97.7 89 18 110/61 97 Room Air 05/29/16 16:41 97.7 94 15 133/79 98 Room Air Height (Feet): 6 Height (Inches): 4.00 Weight (Pounds): 180 General Appearance: WD/WN, no acute distress HEENT: normocephalic, atraumatic, anicteric, mucous membranes moist Respiratory/Chest: chest wall non-tender, lungs clear, normal breath sounds, no respiratory distress, no accessory muscle use Cardiovascular: normal peripheral pulses, normal rate, regular rhythm, no gallop/murmur, no JVD Abdomen: normal bowel sounds, soft, non tender, no organomegaly, non distended , no mass, no scars Extremities: no cyanosis, no clubbing Skin: no rash, no lesions, no ulcers Laboratory Tests Test 05/30/16 05:10 05/30/16 05:15 White Blood Count 4.6 K/UL (4.8-10.8) L Red Blood Count 3.53 M/UL (4.70-6.10) L Hemoglobin 11.3 G/DL (14.2-18.0) L Hematocrit 32.6 % (42.0-52.0) L Mean Corpuscular Volume 92 FL (80-99) Mean Corpuscular Hemoglobin 32.0 PG (27.0-31.0) H Mean Corpuscular Hemoglobin Concent 34.6 G/DL (32.0-36.0) Red Cell Distribution Width 13.3 % (11.6-14.8) Platelet Count 207 K/UL (150-450) Mean Platelet Volume 6.1 FL (6.5-10.1) L Neutrophils (%) (Auto) 37.7 % (45.0-75.0) L Lymphocytes (%) (Auto) 39.1 % (20.0-45.0) Monocytes (%) (Auto) 15.3 % (1.0-10.0) H Eosinophils (%) (Auto) 6.7 % (0.0-3.0) H Basophils (%) (Auto) 1.3 % (0.0-2.0) Sodium Level 138 mEQ/L (135-145) Potassium Level 3.8 mEQ/L (3.4-4.9) Chloride Level 102 mEQ/L (98-107) Carbon Dioxide Level 22 mEQ/L (20-30) Anion Gap 14 (5-15) Blood Urea Nitrogen 17 mg/dL (7-23) Creatinine 0.9 mg/dL (0.7-1.2) Estimat Glomerular Filtration Rate > 60 mL/min (>60) Glucose Level 106 mg/dL (74-106) Calcium Level 8.7 mg/dL (8.6-10.2) Kathryn Cheung M.D. May 30, 2016 16:24
--- NOTE | 2016-05-31 12:44 | Discharge Summary ---
Discharge Summary Hospital Course Date of Admission May 24, 2016 at 22:46 Date of Discharge May 30, 2016 at 11:50 Admitting Diagnosis lower extremity cellulitis HPI Jeremie Santana is a 55 year old male who was admitted on May 24, 2016 at 22:46 for Lower Extremity Cellulitis Hospital Course dc summary dictated #[id number] Discharge Medications Continued Medications: Acetaminophen (Acetaminophen) 650 Mg/20.3 Ml Solution 650 MG ORAL Q4HR for Fever/Headache/Mild Pain, ML 0 Refills Al Hydroxide/mg Hydroxide (Mag-Al Liquid) 30 Ml Oral.susp 30 ML ORAL Q6HR, ML Benztropine Mesylate (Benztropine Mesylate) 0.5 Mg Tablet 1 MG PO BID, TAB Divalproex Sodium (Depakote) 500 Mg Tablet.dr 500 MG PO Q AM, TAB Divalproex Sodium (Depakote) 500 Mg Tablet.dr 1000 MG PO BEDTIME, TAB Finasteride* (Proscar*) 5 Mg Tablet 5 MG ORAL DAILY, #30 TAB 0 Refills Fluphenazine Hcl* (Prolixin*) 5 Mg Tablet 10 MG ORAL TWICE A DAY, #10 TAB 0 Refills Heparin Sod (Porcine) (Heparin Sodium*) 5 000/1 Ml Vial 5000 UNITS SUBQ EVERY 12 HOURS, VIAL Lorazepam (Lorazepam) 4 Mg/1 Ml Vial 4 MG IV, VIAL Mirtazapine (Remeron) 15 Mg Tab.rapdis 15 MG ORAL BEDTIME, TAB Morphine Sulfate* (Morphine Sulfate*) 2 Mg/1 Ml Cartridge 1 MG IV Q4HR for For Pain, EA Olanzapine* (Zyprexa*) 10 Mg Tablet 10 MG ORAL BEDTIME, #30 TAB 0 Refills Polyethylene Glycol* (Miralax*) 17 Gm Powd.pack 17 GM ORAL DAILY, PACKET Tamsulosin HCl (Flomax) 0.4 Mg Cap.er.24h 0.4 MG ORAL DAILY, CAP Vancomycin Hcl/D5w (Vancomycin-D5w 1 G/250 Ml) 1 Gm/250 Ml Plast..bag 1.25 GM IVPB Q24H, BAG Zolpidem Tartrate* (Zolpidem Tartrate*) 5 Mg Tablet 5 MG ORAL BEDTIME PRN for Insomnia, TAB 0 Refills Discharge Condition Upon Discharge: stable Discharge Disposition Patient was discharged to SNF/Subacute Facility(03) Discharge Diagnoses: Discharge Instructions Discharge Instructions Special Instructions I have been assigned to complete a D/C Summary on this account. I was not involved in the patient management I have been assigned to complete a D/C Summary on this account. I was not involved in the patient management Ioana Adam NP (Vanchtein) May 31, 2016 12:44
--- NOTE | 2016-06-01 04:18 | Discharge Summary 2 SIG ---
DATE OF ADMISSION: 05/24/2016 DATE OF DISCHARGE: 05/30/2016 REASON FOR HOSPITALIZATION: 55-year-old male, presented from alf facility with complaints of swelling and redness in bilateral lower extremities. He denied any chest pain or pressure. He denied shortness of breath. He reported pain in bilateral lower extremities 6/10, which was fairly chronic pain. He denied any fall or any trauma. No back pain. No flank pain. Questionable low-grade fever. The patient started on antibiotic along with diuretic. Laboratory work was essentially negative.Patient admitted for further management. ADMITTING DIAGNOSES: 1. Cellulitis of bilateral lower extremities. 2. Venous stasis. 3. Venous stasis dermatitis of bilateral lower extremities. HOSPITAL STAY: The patient was admitted. ID consult was requested. Initial blood culture revealed Staph coag-negative. The patient started on empiric antibiotics. The patient has no PICC line, no decub as a possible source of SCON. Echocardiogram revealed preserved ejection fraction of 55% to 60% and large echogenic material consistent with vegetation. Cardiology consult was requested. The patient on vancomycin. Repeated blood cultures were negative. JAVIER was not done. ID recommended to continue antibiotics for total of 6 weeks and repeat after completion of therapy either JAVIER or 2D echo. Arterial duplex of bilateral lower extremities was essentially negative. Chest x-ray was negative. Patient initially with evidence of hyponatremia. Cat Operator followed. The patient received gentle hydration along with diuresis. Sodium improved Electrolytes and renal parameters were closely monitored. Recommended to avoid nephrotoxic as well as nonsteroid anti-inflammatory drugs. The patient exhibited tachyarrhythmia on telemetry; per central service supply distributor sinus tachycardia responsible for tachyarrhythmia likely secondary to infectious process. DVT prophylaxis provided. Pain management and bowel regimen provided. ID cleared for discharge to alf facility for total of 6 weeks of antibiotics. FINAL DIAGNOSES: 1. Sepsis with bacteremia. 2. Likely endocarditis/high risk for endocarditis. 3. Cellulitis of bilateral lower extremities. 4. Venous stasis dermatitis in bilateral lower extremities. 5. Hyponatremia secondary to dehydration, corrected. 6. Sinus tachycardia, likely secondary to infectious process. 7. Hypertension DISCHARGE MEDICATIONS: See medication reconciliation list. DISCHARGE INSTRUCTIONS: The patient was discharged to alf facility to continue IV antibiotics for total of 6 weeks. Upon completion of therapy, repeat 2D echo or JAVIER to evaluate for eradication of vegetation. Santhosh Dias D.O. I have been assigned to dictate discharge summary on this account and I was not involved in the patient's management. Ioana Adam (Vanchtein) NAshishPAshish DR: OLEGARIO JOB#: [id number] CC: HUDSON
--- NOTE | 2016-06-02 20:07 | Progress Note ---
DATE: 05/27/2016 PSYCHIATRIC PROGRESS NOTE SUBJECTIVE: The patient still has some mood lability, continuing on combination of Zyprexa and , stabilize his mood. The patient was seen and assessed. Chart was reviewed. Discussed with staff. Neema Wheeler M.D. DR: YEYO JOB#: [id number] CC:
--- NOTE | 2016-06-02 20:47 | Consultation ---
DATE OF CONSULTATION: 05/26/2016 HISTORY OF PRESENT ILLNESS: This is a male patient, who was admitted to [facility] from [facility] because of increased bilateral lower extremity edema and cellulitis but he was also diagnosed with paranoid schizophrenia. He is a patient of mine in the facility and there was a psychiatric consultation for general schizophrenia. He has previously been on Zyprexa, Depakote, and Prolixin in the past but he has intermittent bouts of agitation, and impulsivity, mood lability, and auditory hallucinations with paranoia that is why there was a psychiatric consultation because his cognition has declined below baseline secondary to the progression of his medical illness. ALLERGIES: No known drug allergies. SOCIAL HISTORY: The patient lives in [facility]. Financially supported by [facility] and Medicare. SUBSTANCE ABUSE HISTORY: Denies drug or alcohol use. Psychiatric diagnosis, paranoid schizophrenia. He has had multiple psychiatric admissions, last time was [facility]. MENTAL STATUS EXAMINATION: The patient is a 55-year-old male, psychomotor agitation. Mood is irritable and agitated. Affect guarded and restricted. Thought process is disorganized and illogical. Denies any current signs of suicidal or homicidal thoughts. Insight and judgment is poor. PSYCHIATRIC DIAGNOSIS: Paranoid schizophrenia with acute exacerbation. PLAN: Continue to treat this patient with Zyprexa at a low dose of Prolixin twice a day to stabilize his mood, continue to provide behavioral management for this patient. The patient was seen and assessed in his room. Chart reviewed. Discussed with staff. Dr. Santhosh Dias, thank you very much for the consultation. Neema Wheeler M.D. DR: Inés JOB#: [id number] CC:
--- NOTE | 2016-06-02 20:57 | Progress Note ---
DATE: 05/29/2016 PSYCHIATRIC PROGRESS NOTE SUBJECTIVE: The patient is a 55-year-old male patient. PLAN: I am going to treat him with a psychiatric medication regimen consisting of Prolixin and Zyprexa to stabilize his mood. He was diagnosed with paranoid schizophrenia. Chart reviewed. Discussed with staff. The patient was seen and assessed at bedside. He still has bilateral lower extremity cellulitis. . Chart reviewed. Discussed with staff. The patient was seen and assessed at bedside. Supportive therapy provided. The patient was seen and assessed in his room. Chart reviewed and discussed with staff. Neema Wheeler M.D. DR: YEYO JOB#: [id number] CC:
--- NOTE | 2016-06-02 20:57 | Progress Note ---
DATE: 05/28/2016 PSYCHIATRIC PROGRESS NOTE: Plan is to continue Prolixin and Zyprexa. His family requested to increase his Prolixin. We will consider increasing his Prolixin and cross-titrating the Zyprexa. Seen and assessed in his room. Chart reviewed and discussed with staff. Neema Wheeler M.D. DR: Melania JOB#: [id number] CC:
--- NOTE | 2016-06-04 17:31 | Diagnostic Imaging Report ---
APPROVED REPORT CPT Code: 33900 Present Symptoms Comments: R/O DVT BILATERAL: Imaging reveals a patent deep venous system bilaterally. There is no evidence of thrombus within the femoral, popliteal or tibial segments. The greater saphenous veins are also within normal limits. Doppler indicates normal spontaneous flow within these segments. Incidental findings: An enlarged lymph node noted in the right superficial femoral vein area measures (2.2 cm x 0.8cm).
--- NOTE | 2016-06-04 17:31 | Diagnostic Imaging Report ---
APPROVED REPORT CPT Code: 03915 Symptoms Comments: Pain RIGHT LEG: Common femoral artery waveform analysis is within normal limits at rest. Color flow duplex sonography reveals minimal calcification throughout the superficial femoral, and popliteal arteries. There is no evidence of stenosis or occlusion within these segments. The tibioperoneal trunk is patent. The posterior tibial, anterior tibial and dorsalis pedis arteries are also patent. Doppler waveform analysis is consistent, with minimal to mild ischemia at rest. LEFT LEG: Common femoral artery waveform analysis is within normal limits at rest. Color flow duplex sonography reveals minimal calcification throughout the superficial femoral, and popliteal arteries. There is no evidence of stenosis or occlusion within these segments. The tibioperoneal trunk is patent. The posterior tibial, anterior tibial and dorsalis pedis arteries are also patent. Doppler tibial artery waveform analysis is within normal limits at rest.
== END 2016-05-30 11:50 | DRG 871 ==
LOC: EDBD 21:59 → EMR 22:43 → 4E 22:46 → EDBEDREQ 05-25 01:01 → EMR 05-25 02:05 → 4E 05-27 10:27
DX: A41.9 Sepsis, unspecified organism (principal); G93.40 Encephalopathy, unspecified; E87.1 Hypo-osmolality and hyponatremia; I38 Endocarditis, valve unspecified; L03.116 Cellulitis of left lower limb; L03.115 Cellulitis of right lower limb; I87.8 Other specified disorders of veins; F29 Unspecified psychosis not due to a substance or known physiological condition; D64.9 Anemia, unspecified; E86.0 Dehydration; I10 Essential (primary) hypertension; L30.9 Dermatitis, unspecified
CPT/HCPCS: 36415; 71010; 80048; 80053; 80061; 80202; 82550; 82553; 83036; 83605; 83880; 84443; 84484; 85025; 85651; 86140; 87040; 87081; 87181; 93005; 93306; 93925; 93970